=== PATIENT | male | born 1950 | race African-American/Black ===

== ENCOUNTER 2017-06-01 13:29 | Outpatient (CLI) | payer MEDICARE, MEDICAID ==
[~2017-06-01 13:29] MED LIST: Gadobenate Dimeglumine 529 MG/1 ML (20ML VIAL) ONE
--- NOTE | 2017-06-01 14:42 | ULT ---
CAROTID ULTRASOUND WITH PRABHAKAR SCALE AND DOPPLER DUPLEX COLOR FLOW IMAGING SPECTRAL ANALYSIS PERFORMED: Date: 06/01/17 CLINICAL INDICATION: Hyperlipidemia, stroke, aphasia. FINDINGS: There is no significant atherosclerotic calcification of the carotid arteries. PEAK SYSTOLIC VELOCITY (CM/S): Right CCA 81 Left CCA 71 Right ICA 53 Left ICA 34 There is antegrade flow within the visualized bilateral vertebral arteries. IMPRESSION: 1. No hemodynamically significant stenosis of the right internal carotid artery. 2. No hemodynamically significant stenosis of the left internal carotid artery. POS: MEDHAT
--- NOTE | 2017-06-01 16:11 | MRI ---
BRAIN MRI WITH AND WITHOUT CONTRAST: CLINICAL HISTORY: CVA. Difficulty with speech. FINDINGS: There is parenchymal volume loss and gliosis, notably involving the posterior left cerebral hemispher e with superimposed multifoal signal alteration, indicating moderate chronic ischemic disease. There is no acute restriction. Ex vacuo dilatation of the posterior aspect of the left lateral ventricle is present. No intracranial hemorrhagic susceptibility. no pathologic enhancing intraaxial mass. T he imaged skull base flow voids are maintained. IMPRESSION: 1. Prominent encephalomalacia of the left cerebral hemisphere with superimposed moderate chronic dagoberto rovascular ischemic disease. 2. No acute territorial infarction. 3. No enhancing intraaxial mass. POS: HARRY
== END 2017-06-01 13:30 | disposition home or self-care (01) ==
LOC: SCSMRI 13:29
PROVIDERS: ATTEND Psychiatry & Neurology Neurology
DX: I63.9 Cerebral infarction, unspecified (principal); E78.5 Hyperlipidemia, unspecified; R47.01 Aphasia; G93.89 Other specified disorders of brain; I67.82 Cerebral ischemia
CPT/HCPCS: 70553; 82565; 93880; A9579

== ENCOUNTER 2017-08-18 11:54 | Inpatient (IN) | payer MEDICARE, MEDICAID ==
[2017-08-18] MEDS ORDERED: Nitroglycerin 0.4 MG TAB (25 Tab Bottle) ONE (12:25)
[2017-08-18] MEDS ORDERED: Nitroglycerin 2% Ointment 1 INCH/1 GM Packet ONE (12:25)
[2017-08-18 12:57] LABS: ALT (SGPT) 11 U/L (8-55); AST (SGOT) 17 U/L (5-34); Albumin 4.7 g/dL (3.4-4.8); Alkaline Phosphatase 71 U/L (40-150); Anion Gap 23 mmol/L (10-20); BUN (Urea Nitrogen) 12 mg/dL (8.4-25.7); Bilirubin, Total 0.5 mg/dL (0.2-1.2); CK (CPK) 139 U/L (30-200); Calc. Creatinine Clearance 0 mL/min (70-130); Calcium 9.4 mg/dL (7.8-10.44); Carbon Dioxide 20 mmol/L (23-31); Chloride 100 mmol/L (98-107); Estimated GFR-MDRD 78; Globulin 3.6 g/dL (2.4-3.5); Glucose 94 mg/dL (80-115); Potassium 3.5 mmol/L (3.5-5.1); Protein, Total 8.3 g/dL (5.8-8.1); Sodium 139 mmol/L (136-145)
[2017-08-18 13:11] LABS: CKMB 1.9 ng/mL (0-6.6); Troponin I 0.028 ng/mL (< 0.028)
[2017-08-18 13:27] LABS: Hemoglobin 13.9 g/dL (14.0-18.0); Mean Corpuscular HGB CONC 33.3 g/dL (32.0-36.0); Mean Corpuscular Hemoglobin 21.8 pg (27.0-31.0); Mean Corpuscular Volume 65.5 fl (80.0-94.0); Red Blood Cell (RBC) Count 6.36 mill/uL (4.70-6.10); White Blood Cell (WBC) Count 10.9 thou/uL (4.8-10.8)
[2017-08-18 13:36] LABS: Anisocytosis SLIGHT = 6-15 cells (100X) (0-5/hpf); Band 1 % (5-11); Hypochromia SLIGHT = 6-15 cells (100X) (0-5/hpf); Lymphocytes 7 % (21-51); MDiff Complete? YES; Mean Platelet Volume 6.3 fL (7.4-10.4); Microcytosis SLIGHT = 6-15 cells (100X) (0-5/hpf); Monocytes 7 % (0-10); Neutrophil 82 % (42-75); PLT Morphology Comment PLT clumps seen-ADEQ; Platelet Clumps MODERATE; Reactive Lymphocytes 2 % (0-10); Target Cells SLIGHT = 2-5 cells (100X) (0-1/hpf)
--- NOTE | 2017-08-18 15:41 | HP ---
PRIMARY CARE PHYSICIAN: Ancelmo Duarte M.D. REASON FOR ADMISSION: [facility]. HISTORY OF PRESENT ILLNESS: A 66-year-old -[place] male who has underlying history of hypert ension, diabetes type 2 and seizure disorder who had scheduled endoscopic procedure at [facility]. While procedure, patient developed SVT with heart rate in the 160s. Subsequently, patient had vagal manually and heart rate dropped down to 110. The patient was completely asymptoma tic. Patient was scheduled today for colonoscopy and after colonoscopy, patient had SVT episode. He was given lidocaine and vagal manually and subsequently he was converted to normal sinus rhythm. Th e patient was given 200 mL NS and EJ IV access was obtained, and subsequently he was sent to emergenc y room for evaluation. When he arrived to emergency room, he was in sinus rhythm, hypertensive. 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 REVIEW OF SYSTEMS: The following complete review of systems was negative, unless otherwise mentioned in the HPI or below: Constitutional: Weight loss or gain, ability to conduct usual activities. Skin: Rash, itching. Eyes: Double vision, pain. ENT/Mouth: Nose bleeding, neck stiffness, pain, tenderness. Cardiovascular: Palpitations, dyspnea on exertion, orthopnea. Respiratory: Shortness of breath, wheezing, cough, hemoptysis, fever or night sweats. Gastrointestinal: Poor appetite, abdominal pain, heartburn, nausea, vomiting, constipation, or diarr hea. Genitourinary: Urgency, frequency, dysuria, nocturia. Musculoskeletal: Pain, swelling. Neurologic/Psychiatric: Anxiety, depression. Allergy/Immunologic: Skin rash, bleeding tendency. Please see my HPI for pertinent positive and negative. All other review of systems reviewed and nega tive except as mentioned in the HPI. Review of system is also unreliable with the patient because of his cognitive status. PAST MEDICAL HISTORY: History of cerebrovascular accident with right-sided weakness, diabetes type 2 , hypertension, dyslipidemia, epilepsy. PAST SURGICAL HISTORY: The patient is not able to provide any surgical history. PAST PSYCHIATRIC HISTORY: The patient has baseline mental retardation. SOCIAL HISTORY: Patient lives at home. No history of tobacco, alcohol or illicit drug abuse. FAMILY HISTORY: No strong family history of premature coronary artery disease, stroke or cancer. ALLERGIES: No known drug allergy. CURRENT HOME MEDICATIONS: Amlodipine 10 mg daily, aspirin 81 mg p.o. daily, Lipitor 20 mg p.o. at be dtime, Coreg 6.25 mg p.o. b.i.d., clonidine p.r.n. basis, ferrous sulfate 325 mg p.o. daily, hydralaz ine 100 mg 3 times daily, lisinopril 40 mg p.o. daily, metformin 500 mg twice daily, Keppra 500 mg tw ice daily, and Aldactone 25 mg p.o. daily. EMERGENCY ROOM COURSE: Patient is given nitroglycerin 0.4 mg sublingual, nitropatch and aspirin 324 mg. PHYSICAL EXAMINATION: VITAL SIGNS: On arrival, blood pressure 203/113, pulse 99, respiratory rate 19, temperature 98.8, sa turation 96% on room air and weight 99.8 kilograms. GENERAL: The patient is currently alert, awake. Follows simple command. No obvious acute distress. HEAD: Normocephalic, atraumatic. EYES: Pupils round, reactive to light. Extraocular muscle intact. ENT: Oropharynx within normal limits. Nasal deformity noted. Moist mucous membranes. NECK: Supple, no JVD, no thyromegaly, no carotid bruit. LUNGS: Clear to auscultation without any rhonchi or rales. CARDIAC: S1 and S2 regular. No murmur, no gallop, no rub. ABDOMEN: Soft, bowel sounds present, nontender, nondistended. No organomegaly, no mass, no suprapub ic tenderness. BACK: Examination unremarkable, no CVA tenderness. EXTREMITIES: Upper extremity passive movement of all joints are normal. Lower extremities: No ernesto a. Good peripheral pulsation, no calf tenderness. SKIN: No skin rash. HEMATOLOGICAL SYSTEM: No lymphadenopathy. PSYCHIATRIC: Flat affect. NEUROLOGIC: The patient does not have any gross new focal neurological deficits, but detailed neurol ogical examination is not possible with the patient. IMAGING DATA AND SIGNIFICANT LABORATORY DATA: 1. EKG showing sinus tachycardia, nonspecific ST-T changes. 2. CBC: WBC 10.9, hemoglobin 13.9, MCV 65.5, platelets test not performed because of platelet count clump little. 3. BMP: Sodium 139, potassium 3.5, chloride 100, carbon dioxide 20, anion gap 23, BUN 12, creatinin e 1.14, glucose 94, calcium 9.4. 4. LFT: AST 17, ALT 11, alkaline phosphatase 71, albumin 4.7. CK 139, CK-MB 1.9, troponin I 0.028, BNP 37.5. ASSESSMENT AND PLAN/IMPRESSION: 1. Supraventricular tachycardia, converted to sinus rhythm after lidocaine and vagal maneuver. At t his point, this patient [facility]. We do not have strips a vailable. Currently, patient has sinus rhythm. Episode was transient. We will keep this patient in the hospital for observation for telemetry monitoring. We will check T3, T4, TSH tomorrow. We will do serial cardiac enzymes to rule out acute coronary syndrome. We will check lipid profile for risk stratification. We will continue with nitro patch q.8 hourly for his hypertension. We will consult integration architect tomorrow for possible evaluation with ablation if needed. We will obtain echoca rdiography to assess ejection fraction and other structural abnormality. 2. Diabetes type 2. We will continue metformin 500 mg twice daily. Diabetic diet will be given. A ccu-Chek a.c. and at bedtime and insulin as per sliding scale per protocol. 3. Hypertension with hypertensive urgency. We will continue with nitropatch q.8 hourly. We will re sume his home medication including hydralazine 100 mg t.i.d., lisinopril 40 mg p.o. daily, amlodipine 10 mg p.o. daily and p.r.n. basis IV medications. 4. Dyslipidemia. Check lipid profile tomorrow and continue Lipitor at 20 mg p.o. at bedtime. 5. Microcytic anemia. The patient had colonoscopy today. We will continue ferrous sulfate 325 mg p .o. daily. 6. Seizure disorder. Continue Keppra 500 mg twice daily. 7. Deep venous thrombosis prophylaxis not needed because we are expecting discharge in 24 hours. 8. Gastrointestinal prophylaxis, Pepcid 20 mg p.o. b.i.d. 9. Code status: The patient is FULL CODE. Patient does not have any surrogate decision maker. Disposition plan based on clinical course. We are expecting patient's stay in hospital [address] an of care discussed with the patient in detail.
[2017-08-18] MEDS ORDERED: Ondansetron ODT 4 MG TAB PO PRN (16:33)
[2017-08-18] MEDS ORDERED: Artificial Tears 18 DROP/0.9 ML EA EYE PRN (16:33)
[2017-08-18] MEDS ORDERED: Zolpidem Tartrate 5 MG TAB PO PRN (16:33)
[2017-08-18] MEDS ORDERED: HYDROcodone/Acetaminophen 5/325 mg Tablet PO PRN (16:33)
[2017-08-18] MEDS ORDERED: Diabetic Tussin 200 MG/10 ML UDCUP PO PRN (16:33)
[2017-08-18] MEDS ORDERED: Eucerin (Mineral Oil/Petrolatum,White) 30 gm Jar TOP PRN (16:33)
[2017-08-18] MEDS ORDERED: Senokot 8.6 MG TAB PO PRN (16:33)
[2017-08-18] MEDS ORDERED: Nitroglycerin 0.4 MG TAB (25 Tab Bottle) SL PRN (16:33)
[2017-08-18] MEDS ORDERED: Sodium Chloride 0.65% Nasal 44 ML BOT EA NARE PRN (16:33)
[2017-08-18] MEDS ORDERED: Chloraseptic Spray 180 ml Bottle PO PRN (16:33)
[2017-08-18] MEDS ORDERED: Dextrose 50% Abboject 50 ML SYRINGE SLOW IVP PRN (16:33)
[2017-08-18] MEDS ORDERED: Mag-Al 1200 mg/1200 mg/30 ML UDCUP PO PRN (16:33)
[2017-08-18] MEDS ORDERED: Dextrose 5% in Water 1,000 ML IV PRN (16:33)
[2017-08-18] MEDS ORDERED: Loratadine 10 MG TAB PO PRN (16:33)
[2017-08-18] MEDS ORDERED: Milk Of Magnesia 30 ML UDCUP PO PRN (16:33)
[2017-08-18] MEDS ORDERED: hydrALAZINE 20 MG/ML VIAL SLOW IVP PRN (16:33)
[2017-08-18] MEDS ORDERED: Ondansetron HCl/PF 4 MG/2 ML Vial IVP PRN (16:33)
[2017-08-18] MEDS ORDERED: Loperamide HCl 2 MG CAP PO PRN (16:33)
[2017-08-18] MEDS ORDERED: HumaLOG 300 UNITS/3 ML VIAL SC PRN ×2 (16:33)
[2017-08-18] MEDS ORDERED: Acetaminophen 650 MG Suppository PR PRN (16:33)
[2017-08-18 16:41] LABS: Troponin I 0.048 ng/mL (< 0.028)
[2017-08-18 17:28] LABS: Bilirubin Negative (Negative); Blood, Urine Small (Negative); Clarity CLEAR (Clear); Glucose, Urine (Dipstick) Negative (Negative); Leukocyte Negative (Negative); Nitrite Negative (Negative); Protein, Urine (Dipstick) 300 mg/dL (Neg-Trace); Urobilinogen 0.2 mg/dL (0.2-1.0); pH, Urine 6.5 (5.0-9.0)
[2017-08-18] MEDS ORDERED: hydrALAZINE 25 MG TAB PO SCH (17:30)
[2017-08-18 17:35] LABS: Bacteria/HPF None Seen HPF (None Seen); Hyaline Casts/LPF 0-3 HYALINE CAST LPF (0-3 Hyaline); Squamous Epithelial None Seen HPF (0-3); WBC/HPF 0-3 HPF (0-3)
[2017-08-18] MEDS: Carvedilol 6.25 MG TAB PO SCH (18:49)
[2017-08-18] MEDS: metFORMIN 500 MG TAB PO SCH (18:50)
[2017-08-18] MEDS: hydrALAZINE 25 MG TAB PO SCH (18:57)
[2017-08-18 20:17] LABS: Troponin I 0.073 ng/mL (< 0.028)
[2017-08-18] MEDS ORDERED: levETIRAcetam 500 MG TAB PO SCH (21:00)
[2017-08-18] MEDS ORDERED: Atorvastatin Calcium 20 MG TAB PO SCH (21:00)
[2017-08-18] MEDS: Famotidine 20 MG TAB PO SCH (21:05)
[2017-08-18] MEDS: Nitroglycerin 2% Ointment 1 INCH/1 GM Packet TOP SCH (21:06)
[2017-08-19 04:54] LABS: Hemoglobin 11.4 g/dL (14.0-18.0); Lymphocytes 24 % (21-51); MDiff Complete? YES; Mean Corpuscular HGB CONC 34.2 g/dL (32.0-36.0); Mean Corpuscular Hemoglobin 22.1 pg (27.0-31.0); Mean Corpuscular Volume 64.6 fL (78.0-98.0); Mean Platelet Volume 5.6 fL (7.4-10.4); Monocytes 13 % (0-10); Neutrophil 63 % (42-75); PLT Morphology Comment Appears Adequate; Platelet Count 227 thou/uL (130-400); RBC Distribution Width 17.9 % (11.5-14.5); Red Blood Cell (RBC) Count 5.15 mill/uL (4.70-6.10); White Blood Cell (WBC) Count 8.7 thou/uL (4.8-10.8)
[2017-08-19 05:07] LABS: Anion Gap 18 mmol/L (10-20); BUN (Urea Nitrogen) 13 mg/dL (8.4-25.7); Calc. Creatinine Clearance 71 mL/min (70-130); Calcium 8.8 mg/dL (7.8-10.44); Carbon Dioxide 25 mmol/L (23-31); Cardiac Risk 2.4 (Less than 4.5); Chloride 101 mmol/L (98-107); Cholesterol 137 mg/dl (< 200 Desired); Estimated GFR-MDRD 64; Glucose 92 mg/dL (80-115); HDL Cholesterol 58 mg/dL (>60 Neg Risk); LDL Cholesterol, Calculated 69 mg/dL; Sodium 141 mmol/L (136-145); Triglycerides 49 mg/dL (Less than 150)
[2017-08-19 05:08] LABS: Potassium 2.9 mmol/L (3.5-5.1)
[2017-08-19 05:18] LABS: Thyroid Stimulating Hormone 0.465 uIU/mL (0.35-4.94)
[2017-08-19] MEDS ORDERED: Potassium Chloride 20 MEQ TAB PO SCH (05:30)
[2017-08-19] MEDS: Nitroglycerin 2% Ointment 1 INCH/1 GM Packet TOP SCH ×3 (05:37→22:51)
[2017-08-19 05:57] LABS: Free T4 (Free Thyroxine) 1.32 ng/dL (0.70-1.48)
[2017-08-19] MEDS ORDERED: Potassium Chloride 40 MEQ in Premix Bag 1 BAG IVPB SCH (07:15)
[2017-08-19] MEDS: Carvedilol 6.25 MG TAB PO SCH ×2 (07:42→17:13)
[2017-08-19] MEDS: Aspirin 325 MG TAB PO SCH (07:43)
[2017-08-19] MEDS: cloNIDine 0.2 MG TAB PO SCH ×3 (07:43→20:31)
[2017-08-19] MEDS: Spironolactone 25 MG TAB PO SCH (07:43)
[2017-08-19] MEDS: levETIRAcetam 500 MG TAB PO SCH ×2 (07:44→20:31)
[2017-08-19] MEDS: hydrALAZINE 25 MG TAB PO SCH ×3 (07:44→20:30)
[2017-08-19] MEDS: Lisinopril 20 MG TAB PO SCH (07:44)
[2017-08-19] MEDS: Famotidine 20 MG TAB PO SCH ×2 (07:47→20:32)
[2017-08-19] MEDS: Ferrous Sulfate 325 MG TAB PO SCH (07:50)
[2017-08-19] MEDS: metFORMIN 500 MG TAB PO SCH ×2 (07:50→17:12)
[2017-08-19] MEDS ORDERED: Amlodipine 10 MG TAB PO SCH (09:00)
--- NOTE | 2017-08-19 09:49 | PDOC.PN ---
- Subjective Encounter Start Date: 08/19/17 Encounter Start Time: 07:20 -: old records requested/rev Patient seen and examined for SVT. No new complaints. No overnight events - Objective Resuscitation Status: Resuscitation Status FULL:Full Resuscitation MAR Reviewed: Yes Vital Signs & Weight: Vital Signs (12 hours) Temp Pulse Resp BP Pulse Ox 08/19/17 07:44 100 08/19/17 07:39 98.7 F 100 14 154/97 H 96 08/19/17 04:00 98.9 F 100 20 164/87 H 97 08/19/17 00:00 99.5 F 94 20 136/75 97 Weight Weight 205 lb 9.6 oz I&O: 08/18/17 08/19/17 08/20/17 06:59 06:59 06:59 Intake Total 480 Output Total 500 Balance -20 Result Diagrams: 08/19/17 04:11 08/19/17 04:10 Additional Labs: Accuchecks 08/19/17 08/18/17 08/18/17 06:10 20:39 17:09 POC Glucose 92 196 H 122 H EKG Reviewed by me: Yes (nsr) Phys Exam - Physical Examination Constitutional: NAD HEENT: PERRLA, moist MMs, sclera anicteric Neck: no JVD, supple Respiratory: no wheezing, no rales, no rhonchi Cardiovascular: RRR, no significant murmur, no rub Gastrointestinal: soft, non-tender, no distention, positive bowel sounds Musculoskeletal: no edema, pulses present Neurological: non-focal, normal sensation, moves all 4 limbs Lymphatic: no nodes Psychiatric: normal affect, A&O x 3 Skin: no rash, normal turgor Dx/Plan (1) Demand ischemia Code(s): I24.8 - OTHER FORMS OF ACUTE ISCHEMIC HEART DISEASE Status: Acute (2) Hypokalemia Code(s): E87.6 - HYPOKALEMIA Status: Acute (3) SVT (supraventricular tachycardia) Code(s): I47.1 - SUPRAVENTRICULAR TACHYCARDIA Status: Acute (4) Diabetes type 2, controlled Code(s): E11.9 - TYPE 2 DIABETES MELLITUS WITHOUT COMPLICATIONS Status: Chronic (5) Dyslipidemia Code(s): E78.5 - HYPERLIPIDEMIA, UNSPECIFIED Status: Chronic (6) Hypertension Code(s): I10 - ESSENTIAL (PRIMARY) HYPERTENSION Status: Chronic (7) Microcytic anemia Code(s): D50.9 - IRON DEFICIENCY ANEMIA, UNSPECIFIED Status: Chronic (8) Obesity (BMI 30.0-34.9) Code(s): E66.9 - OBESITY, UNSPECIFIED Status: Chronic - Plan cont current plan of care * replace potassium * magnesium is normal * spoke with EP, plan for EP study tomorrow * will change to inpt status * Echo pending * medication reviewed as below * symptomatic treatment. Review of Systems - Review of Systems Eyes: negative: Pain, Vision Change, Conjunctivae Inflammation, Eyelid Inflammation, Redness, Other ENT: negative: Ear Pain, Ear Discharge, Nose Pain, Nose Discharge, Nose Congestion, Mouth Pain, Mouth Swelling, Throat Pain, Throat Swelling, Other Respiratory: negative: Cough, Dry, Shortness of Breath, Hemoptysis, SOB with Excertion, Pleuritic Pain, Sputum, Wheezing Cardiovascular: negative: chest pain, palpitations, orthopnea, paroxysmal nocturnal dyspnea, edema, light headedness, other Gastrointestinal: negative: Nausea, Vomiting, Abdominal Pain, Diarrhea, Constipation, Melena, Hematochezia, Other Genitourinary: negative: Dysuria, Frequency, Incontinence, Hematuria, Retention , Other Musculoskeletal: negative: Neck Pain, Shoulder Pain, Arm Pain, Back Pain, Hand Pain, Leg Pain, Foot Pain, Other Skin: negative: Rash, Lesions, Rogelio, Bruising, Other - Medications/Allergies Allergies/Adverse Reactions: Allergies Allergy/AdvReac Type Severity Reaction Status Date / Time No Known Drug Allergies Allergy Verified 08/18/17 17:17 Medications: Current Medications Acetaminophen (Tylenol) 650 mg GA Q4H PRN PRN Reason: Headache/Fever or Pain Hydrocodone Bitart/Acetaminophen ([place] 5/325) 1 tab PO Q4H PRN PRN Reason: Moderate Pain (4-6) Al Hydroxide/Mg Hydroxide (Maalox) 30 ml PO Q6H PRN PRN Reason: Heartburn or Indigestion Amlodipine Besylate (Norvasc) 10 mg PO HS [facility] Artificial Tears (Tears Naturale) 0 drop EA EYE PRN PRN PRN Reason: Dry Eyes Aspirin (Aspirin) 325 mg PO DAILY [facility] Last Admin: 08/19/17 07:43 Dose: 325 mg Atorvastatin Calcium (Lipitor) 20 mg PO HS [facility] Carvedilol (Coreg) 6.25 mg PO BID[facility] Last Admin: 08/19/17 07:42 Dose: 6.25 mg Clonidine (Catapres) 0.2 mg PO TID [facility] Last Admin: 08/19/17 07:43 Dose: 0.2 mg Dextrose/Water (Dextrose 50%) 25 gm SLOW IVP PRN PRN PRN Reason: Hypoglycemia Famotidine (Pepcid) 20 mg PO BID [facility] Last Admin: 08/19/17 07:47 Dose: 20 mg Ferrous Sulfate (Feosol) 325 mg PO QAM[facility] Last Admin: 08/19/17 07:50 Dose: Not Given Glucagon (Glucagon) 1 mg IM PRN PRN PRN Reason: Hypoglycemia Guaifenesin (Robitussin Sf) 200 mg PO Q4H PRN PRN Reason: Cough Hydralazine HCl (Apresoline) 10 mg SLOW IVP Q4H PRN PRN Reason: Systolic BP > 180 Hydralazine HCl (Apresoline) 100 mg PO TID [facility] Last Admin: 08/19/17 07:44 Dose: 100 mg Dextrose/Water (D5w) 1,000 mls @ 0 mls/hr IV .Q0M PRN; As Directed PRN Reason: Hypoglycemia Insulin Human Lispro (Humalog) 0 units SC .MODERATE SLIDING SC PRN PRN Reason: Moderate Correctional Scale Insulin Human Lispro (Humalog) 0 units SC .BEDTIME SLIDING SC PRN PRN Reason: Bedtime Correctional Scale Levetiracetam (Keppra) 500 mg PO [facility] Levetiracetam (Keppra) 1,000 [facility] [place] Last Admin: 08/19/17 07:44 Dose: 1,000 mg Lisinopril (Zestril) 40 mg PO DAILY [facility] Last Admin: 08/19/17 07:44 Dose: 40 mg Loperamide HCl (Imodium) 2 mg PO PRN PRN PRN Reason: Diarrhea/Loose Stools Loratadine (Claritin) 10 mg PO DAILYPRN PRN PRN Reason: Sinus Symptoms Magnesium Hydroxide (Milk Of Magnesium) 30 ml PO DAILYPRN PRN PRN Reason: Constipation Metformin HCl (Glucophage) 500 mg PO BID[facility] Last Admin: 08/19/17 07:50 Dose: Not Given Mineral Oil/White Petrolatum (Eucerin Cream) 0 gm TOP BIDPRN PRN PRN Reason: Dry Skin Nitroglycerin (Nitrostat) 0.4 mg SL Q5MIN PRN PRN Reason: Chest Pain Nitroglycerin (Nitro-Bid 2% Ointment) 0.5 inch TOP Q8HR [facility] Last Admin: 08/19/17 05:37 Dose: 0.5 inch Ondansetron HCl (Zofran Odt) 4 mg PO Q6H PRN PRN Reason: Nausea/Vomiting Ondansetron HCl (Zofran) 4 mg IVP Q6H PRN PRN Reason: Nausea/Vomiting Phenol (Chloraseptic [place] 180 Ml Bot) 0 ml PO PRN PRN PRN Reason: Sore Throat Senna (Senokot) 2 tab PO HSPRN PRN PRN Reason: Constipation Sodium Chloride ([place] Nasal [place] 0.65%) 0 ml EA NARE QIDPRN PRN PRN Reason: Nasal Congestion Spironolactone (Aldactone) 25 mg PO QAM-WM [facility] Last Admin: 08/19/17 07:43 Dose: 25 mg Zolpidem Tartrate (Ambien) 5 mg PO HSPRN PRN PRN Reason: Insomnia
--- NOTE | 2017-08-19 11:38 | CON ---
DATE OF CONSULTATION: 08/19/2017 ELECTROPHYSIOLOGY CONSULTATION I am seeing Mr. 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 REFERRING PHYSICIAN: Dr. Sandoval HISTORY OF PRESENT ILLNESS: I am seeing Mr. Johnson for the following problems: 1. Paroxysmal supraventricular tachycardia. A. Episode of SVT at [facility] at rate of 160 beats per minute, requiring vagal maneuver to terminate the arrhythmia, also given lidocaine. 2. Abnormal EKG with a potential preexcitation in the initial portion with negative Delta wave in AV R. 3. Mild to moderate mental retardation. 4. 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 ALLERGIES: None noted. MEDICATIONS AT HOME: Amlodipine, aspirin, Lipitor, Coreg, clonidine, ferrous sulfate, hydralazine, l isinopril, metformin, Keppra, Aldactone. SUBJECTIVE: Mr. Johnson is a poor historian. He was undergoing an endoscopic procedure at [facility] and developed SVT requiring vagal maneuvers to terminate it. His heart rate was in the 160s. He was subsequently transferred to our facility for further evaluation. Ever since he arrived his rhythm remained stable. On further questioning, he says he has episodes of a frightening dizzy spells, at times also passes o ut. He could not give us a good time line and the frequency. He has a remote history of seizure dis order, unclear duration and extent. PAST MEDICAL HISTORY: As above. PAST SURGICAL HISTORY: Not available. SOCIAL HISTORY: Patient lives at home. 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 Denies smoking, ETOH or drug abuse. FAMILY HISTORY: Not contributory. OBJECTIVE: VITAL SIGNS: The blood pressure is 154/97, heart rate 100, respirations 14, temperature 98.7 degrees Fahrenheit. GENERAL: He is alert and oriented man in no apparent distress. NECK: Supple. Jugular veins not distended. CHEST: Coarse without crackles. CARDIOVASCULAR: Heart sounds are regular to rate and rhythm. No murmur or gallop. ABDOMEN: Benign. Bowel sounds positive. EXTREMITIES: Lower extremities without edema, clubbing or cyanosis. SKIN: Without rash. NEUROLOGIC: The patient is nonfocal. DATABASE: EKGs reviewed reveals sinus rhythm with some short CA and blurring of the initial portion of the QRS, could be considered ____. LABORATORY DATA: White count is 8.7, hemoglobin 9.4, platelet count is 227. Sodium 141, potassium 2 .9, BUN is 13, creatinine 1.36. Troponin 0.073, previously 0.048, original was 0.028. ASSESSMENT AND PLAN: 1. Mr. Johnson is a pleasant 66-year-old man with a history of mental retardation, hypertension and s eizure disorder. Now he is presenting after a colonoscopy procedure during which he developed SVT, w hich responded to vagal maneuvers. His EKG could be considered with preexcitation. Hence he has a h istory of seizure disorders, possible prior misdiagnosed syncopal spells could have been present. Based on these, I think it is reasonable to have him undergo an invasive EP study and possible ablati on procedure. I explained the procedure to him, but will also contact his earth science technician and medical carlin r of corporate attorney. Risks, benefits were explained. We will set him up for a near date. 2. Hypokalemia, to be corrected. 3. We will obtain echocardiogram, possible further ischemic evaluation hence borderline troponin estrellita sarahes.
[2017-08-19] MEDS: Atorvastatin Calcium 20 MG TAB PO SCH (20:31)
[2017-08-19] MEDS: Amlodipine 10 MG TAB PO SCH (20:31)
[2017-08-20] MEDS: Nitroglycerin 2% Ointment 1 INCH/1 GM Packet TOP SCH ×3 (06:08→21:25)
--- NOTE | 2017-08-20 11:19 | PDOC.PN ---
- Subjective Encounter Start Date: 08/20/17 Encounter Start Time: 08:00 Patient seen and examined for SVT. No new complaints. No overnight events - Objective MAR Reviewed: Yes Vital Signs & Weight: Vital Signs (12 hours) Temp Pulse Resp BP Pulse Ox 08/20/17 07:56 97.9 F 67 17 125/68 94 L 08/20/17 04:00 98.3 F 75 14 120/69 95 Weight Weight 210 lb 14.4 oz I&O: 08/19/17 08/20/17 08/21/17 06:59 06:59 06:59 Intake Total 400 Balance 400 Result Diagrams: 08/19/17 04:11 08/19/17 04:10 Additional Labs: Accuchecks 08/20/17 08/20/17 08/19/17 10:42 05:55 21:01 POC Glucose 89 90 133 H 08/19/17 08/19/17 16:46 10:46 POC Glucose 128 H 95 EKG Reviewed by me: Yes (nsr) Phys Exam - Physical Examination Constitutional: NAD HEENT: PERRLA, moist MMs, sclera anicteric Neck: no JVD, supple Respiratory: no wheezing, no rales, no rhonchi Cardiovascular: RRR, no significant murmur, no rub Gastrointestinal: soft, non-tender, no distention, positive bowel sounds Musculoskeletal: no edema, pulses present Neurological: non-focal, normal sensation, moves all 4 limbs Psychiatric: normal affect Skin: no rash, normal turgor Dx/Plan (1) Demand ischemia Code(s): I24.8 - OTHER FORMS OF ACUTE ISCHEMIC HEART DISEASE Status: Acute (2) Hypokalemia Code(s): E87.6 - HYPOKALEMIA Status: Acute (3) SVT (supraventricular tachycardia) Code(s): I47.1 - SUPRAVENTRICULAR TACHYCARDIA Status: Acute (4) Diabetes type 2, controlled Code(s): E11.9 - TYPE 2 DIABETES MELLITUS WITHOUT COMPLICATIONS Status: Chronic (5) Dyslipidemia Code(s): E78.5 - HYPERLIPIDEMIA, UNSPECIFIED Status: Chronic (6) Hypertension Code(s): I10 - ESSENTIAL (PRIMARY) HYPERTENSION Status: Chronic (7) Microcytic anemia Code(s): D50.9 - IRON DEFICIENCY ANEMIA, UNSPECIFIED Status: Chronic (8) Obesity (BMI 30.0-34.9) Code(s): E66.9 - OBESITY, UNSPECIFIED Status: Chronic - Plan cont current plan of care * repeat BMP tomorrow * today plan for ablation * will consider discharge tomorrow if stable * medication reviewed as below * symptomatic treatment. Review of Systems - Review of Systems ENT: negative: Ear Pain, Ear Discharge, Nose Pain, Nose Discharge, Nose Congestion, Mouth Pain, Mouth Swelling, Throat Pain, Throat Swelling, Other Respiratory: negative: Cough, Dry, Shortness of Breath, Hemoptysis, SOB with Excertion, Pleuritic Pain, Sputum, Wheezing Cardiovascular: negative: chest pain, palpitations, orthopnea, paroxysmal nocturnal dyspnea, edema, light headedness, other Gastrointestinal: negative: Nausea, Vomiting, Abdominal Pain, Diarrhea, Constipation, Melena, Hematochezia, Other Genitourinary: negative: Dysuria, Frequency, Incontinence, Hematuria, Retention , Other Musculoskeletal: negative: Neck Pain, Shoulder Pain, Arm Pain, Back Pain, Hand Pain, Leg Pain, Foot Pain, Other Skin: negative: Rash, Lesions, Rogelio, Bruising, Other - Medications/Allergies Allergies/Adverse Reactions: Allergies Allergy/AdvReac Type Severity Reaction Status Date / Time No Known Drug Allergies Allergy Verified 08/18/17 17:17 Medications: Current Medications Acetaminophen (Tylenol) 650 mg SD Q4H PRN PRN Reason: Headache/Fever or Pain Hydrocodone Bitart/Acetaminophen (Lehr 5/325) 1 tab PO Q4H PRN PRN Reason: Moderate Pain (4-6) Al Hydroxide/Mg Hydroxide (Maalox) 30 ml PO Q6H PRN PRN Reason: Heartburn or Indigestion Amlodipine Besylate (Norvasc) 10 mg PO [facility] Last Admin: 08/19/17 20:31 Dose: 10 mg Artificial Tears (Tears Naturale) 0 drop EA EYE PRN PRN PRN Reason: Dry Eyes Aspirin (Aspirin) 325 mg PO DAILY [facility] Last Admin: 08/19/17 07:43 Dose: 325 mg Atorvastatin Calcium (Lipitor) 20 mg PO [facility] Last Admin: 08/19/17 20:31 Dose: 20 mg Carvedilol (Coreg) 6.25 mg PO BID-[facility] Last Admin: 08/19/17 17:13 Dose: 6.25 mg Clonidine (Catapres) 0.2 mg PO TID [facility] Last Admin: 08/19/17 20:31 Dose: 0.2 mg Dextrose/Water (Dextrose 50%) 25 gm SLOW IVP PRN PRN PRN Reason: Hypoglycemia Famotidine (Pepcid) 20 mg PO BID [facility] Last Admin: 08/19/17 20:32 Dose: 20 mg Ferrous Sulfate (Feosol) 325 mg PO QAM-[facility] Last Admin: 08/19/17 07:50 Dose: Not Given Glucagon (Glucagon) 1 mg IM PRN PRN PRN Reason: Hypoglycemia Guaifenesin (Robitussin Sf) 200 mg PO Q4H PRN PRN Reason: Cough Hydralazine HCl (Apresoline) 10 mg SLOW IVP Q4H PRN PRN Reason: Systolic BP > 180 Hydralazine HCl (Apresoline) 100 mg PO TID [facility] Last Admin: 08/19/17 20:30 Dose: 100 mg Dextrose/Water (D5w) 1,000 mls @ 0 mls/hr IV .Q0M PRN; As Directed PRN Reason: Hypoglycemia Insulin Human Lispro (Humalog) 0 units SC .MODERATE SLIDING SC PRN PRN Reason: Moderate Correctional Scale Insulin Human Lispro (Humalog) 0 units SC .BEDTIME SLIDING SC PRN PRN Reason: Bedtime Correctional Scale Levetiracetam (Keppra) 500 mg PO [facility] Last Admin: 08/19/17 20:31 Dose: 500 mg Levetiracetam (Keppra) 1,000 mg PO [facility] Last Admin: 08/19/17 07:44 Dose: 1,000 mg Lisinopril (Zestril) 40 mg PO DAILY [facility] Last Admin: 08/19/17 07:44 Dose: 40 mg Loperamide HCl (Imodium) 2 mg PO PRN PRN PRN Reason: Diarrhea/Loose Stools Loratadine (Claritin) 10 mg PO DAILYPRN PRN PRN Reason: Sinus Symptoms Magnesium Hydroxide (Milk Of Magnesium) 30 ml PO DAILYPRN PRN PRN Reason: Constipation Metformin [facility] (Glucophage) [facility] Last Admin: 08/19/17 17:12 Dose: 500 mg Mineral Oil/White Petrolatum (Eucerin Cream) 0 gm TOP BIDPRN PRN PRN Reason: Dry Skin Nitroglycerin (Nitrostat) 0.4 mg SL Q5MIN PRN PRN Reason: Chest Pain Nitroglycerin (Nitro-Bid 2% Ointment) 0.5 inch TOP Q8HR [facility] Last Admin: 08/20/17 06:08 Dose: 0.5 inch Ondansetron HCl (Zofran Odt) 4 mg PO Q6H PRN PRN Reason: Nausea/Vomiting Ondansetron HCl (Zofran) 4 mg IVP Q6H PRN PRN Reason: Nausea/Vomiting Phenol (Chloraseptic [place] 180 Ml Bot) 0 ml PO PRN PRN PRN Reason: Sore Throat Senna (Senokot) 2 tab PO HSPRN PRN PRN Reason: Constipation Sodium Chloride ([place] Nasal [place] 0.65%) 0 ml EA NARE QIDPRN PRN PRN Reason: Nasal Congestion Spironolactone (Aldactone) 25 mg PO QAM-WM [facility] Last Admin: 08/19/17 07:43 Dose: 25 mg Zolpidem Tartrate (Ambien) 5 mg PO HSPRN PRN PRN Reason: Insomnia
[2017-08-20] MEDS ORDERED: Heparin 10,000 UNITS/1 ML VIAL ONE (13:46)
[2017-08-20] MEDS ORDERED: Lidocaine 1% (PF) 30 ML VIAL ONE (14:05)
[2017-08-20] MEDS ORDERED: Isoproterenol 0.2 MG/1 ML AMP ONE (15:20)
[2017-08-20] MEDS: metFORMIN 500 MG TAB PO SCH ×2 (15:33→19:45)
[2017-08-20] MEDS ORDERED: Midazolam HCl 2 mg/2 ml Vial ONE (15:33)
[2017-08-20] MEDS: Ferrous Sulfate 325 MG TAB PO SCH (15:33)
[2017-08-20] MEDS: Carvedilol 6.25 MG TAB PO SCH ×2 (15:33→17:38)
[2017-08-20] MEDS: Famotidine 20 MG TAB PO SCH ×2 (15:34→21:24)
[2017-08-20] MEDS ORDERED: Fentanyl 100 MCG/2 ML VIAL ONE (15:34)
[2017-08-20] MEDS: cloNIDine 0.2 MG TAB PO SCH ×3 (15:34→21:00)
[2017-08-20] MEDS: hydrALAZINE 25 MG TAB PO SCH ×3 (15:34→21:00)
[2017-08-20] MEDS ORDERED: Promethazine HCl 25 MG/ML VIAL SLOW IVP PRN (16:11)
[2017-08-20] MEDS ORDERED: Ondansetron HCl/PF 4 MG/2 ML Vial IVP PRN (16:11)
[2017-08-20] MEDS ORDERED: Promethazine HCl 25 MG/ML VIAL IM PRN (16:11)
[2017-08-20] MEDS: Aspirin 325 MG TAB PO SCH (17:37)
[2017-08-20] MEDS: Lisinopril 20 MG TAB PO SCH (17:38)
[2017-08-20] MEDS: levETIRAcetam 500 MG TAB PO SCH ×2 (17:39→21:23)
[2017-08-20] MEDS: Spironolactone 25 MG TAB PO SCH (17:39)
[2017-08-20] MEDS: Atorvastatin Calcium 20 MG TAB PO SCH (21:24)
[2017-08-21] MEDS: Amlodipine 10 MG TAB PO SCH (02:44)
[2017-08-21 05:02] LABS: Anion Gap 14 mmol/L (10-20); BUN (Urea Nitrogen) 20 mg/dL (8.4-25.7); Calc. Creatinine Clearance 54 mL/min (70-130); Calcium 8.4 mg/dL (7.8-10.44); Carbon Dioxide 25 mmol/L (23-31); Chloride 101 mmol/L (98-107); Estimated GFR-MDRD 45; Glucose 92 mg/dL (80-115); Potassium 3.3 mmol/L (3.5-5.1); Sodium 137 mmol/L (136-145)
[2017-08-21] MEDS: Nitroglycerin 2% Ointment 1 INCH/1 GM Packet TOP SCH (05:56)
[2017-08-21 05:58] VITALS: BMI 30.7
[2017-08-21] MEDS ORDERED: Potassium Chloride 20 MEQ TAB PO SCH (07:15)
[2017-08-21] MEDS: levETIRAcetam 500 MG TAB PO SCH (08:15)
[2017-08-21] MEDS: Carvedilol 6.25 MG TAB PO SCH (08:15)
[2017-08-21] MEDS: Lisinopril 20 MG TAB PO SCH (08:16)
[2017-08-21] MEDS: Spironolactone 25 MG TAB PO SCH (08:16)
[2017-08-21] MEDS: Ferrous Sulfate 325 MG TAB PO SCH (08:17)
[2017-08-21] MEDS: hydrALAZINE 25 MG TAB PO SCH (08:17)
[2017-08-21] MEDS: metFORMIN 500 MG TAB PO SCH (08:17)
[2017-08-21] MEDS: cloNIDine 0.2 MG TAB PO SCH (08:17)
[2017-08-21] MEDS: Aspirin 325 MG TAB PO SCH (08:17)
[2017-08-21] MEDS: Famotidine 20 MG TAB PO SCH (08:17)
--- NOTE | 2017-08-21 09:07 | OP ---
DATE OF PROCEDURE: 08/20/2017 COMPREHENSIVE ELECTROPHYSIOLOGY STUDY REFERRING PHYSICIAN: Neymar Sandoval MD REASON FOR PROCEDURE: Mr. Johnson is a 66-year-old man with history of mental retardation, also prior history of syncopal spells, who underwent a recent colonoscopy procedure in which he developed excessive tachycardia terminated with vagal maneuvers. Baseline EKG with minimal slurring in the initial a portion of QRS, which could represent borderline preexcitation, here for EP study for assessment for SVT induction. PROCEDURE: The patient received deep sedation by Anesthesia specialist. After adequate level of sedation achieved, the left femoral venous area was prepped, draped, anesthetized using subcutaneous lidocaine. A 6 and 8-Bulgarian short sheath was introduced through which an octapolar and a decapolar deflectable catheter was advanced to the right ventricular, His bundle, right atrial position, as well as the coronary sinus area. Pacing, mapping, and recording were performed in each location. Following finding was noted. Baseline measurements: NJ 165, QRS 86, QT 375, HV 45 milliseconds. No definite preexcitation at baseline. Sinus node recovery time is 1270. The corrected sinus node recovery time of 457 noted. AV Wenckebach cycle length was 340. Retrograde VA Wenckebach cycle length was 340 milliseconds as well. The concerning VA conduction was noted. Dual AV node physiology was demonstrated, but no echoes were seen during Isuprel and extrastimuli testing. Burst atrial pacing did not induce any SVTs or atrial flutter/fibrillation. Ventricular access stimuli testing was performed with 400 millisecond drive trains with up to 3 ventricular extrastimuli, which were decremented to the refractory period. Following that, again Isuprel administration was performed and the testing was repeated. No inducible supraventricular or ventricular arrhythmias noted. At the end of the case, the cardiac silhouette was unchanged. CONCLUSION: 1. No inducible supraventricular or ventricular arrhythmias are noted. 2. Borderline, difficult to demonstrate dual AV jocy physiology was seen, but no definite ECHos or inducible tachycardia to suggest AVNRT present. 3. Borderline sinus jocy function. PLAN: Continue monitoring. [facility]
--- NOTE | 2017-08-21 10:46 | DIS ---
DATE OF ADMISSION: 08/19/2017 DATE OF DISCHARGE: 08/21/2017 PRIMARY CARE PHYSICIAN: Ancelmo Duarte M.D. DISCHARGE DISPOSITION: Home. PRIMARY DISCHARGE DIAGNOSES: 1. Supraventricular tachycardia. 2. Demand ischemia. 3. Hypokalemia. 4. Left ventricular hypertrophy and pulmonary regurgitation. SECONDARY DISCHARGE DIAGNOSES: History of cerebrovascular accident, seizure disorder, obesity with B TN 30, microcytic anemia, hypertension, dyslipidemia, diabetes type 2. PRIMARY PROCEDURE/OPERATION: Electrophysiology study was performed by Dr. Harkins. RADIOLOGICAL INVESTIGATION: Echocardiography showed LVH, moderate pulmonary regurgitation, normal EF . SIGNIFICANT LABORATORY DATA: WBC 8.7, hemoglobin 11.4, platelet 227. Sodium 137, potassium 3.3, BUN 20, creatinine 1.83, calcium 8.4, LDL 69. Thyroid function test negative. Troponin 0.073. BNP 37. 5. LFT normal. Urinalysis unremarkable. DISCHARGE MEDICATIONS: Amlodipine 10 mg p.o. at bedtime, aspirin 81 mg p.o. daily, Lipitor 20 mg p.o . at bedtime, Coreg 6.25 mg p.o. b.i.d., clonidine 0.2 mg p.o. t.i.d., ferrous sulfate 325 mg p.o. da zena, hydralazine 100 mg p.o. t.i.d., Keppra 1000 mg p.o. in the morning and 500 mg at bedtime, lisino pril 40 mg p.o. daily, metformin 500 mg p.o. b.i.d., Aldactone 25 mg p.o. daily. CONTRAINDICATIONS: None. CODE STATUS: FULL CODE. INPATIENT CONSULTANTS: Dr. Shahana Mijares was consulted for SVT. TEST RESULTS PENDING ON DISCHARGE: None. ALLERGIES: No known drug allergy. DISCHARGE PLAN: Post hospital, the patient will follow up with primary care physician in 1 week. HOSPITAL COURSE: A 66-year-old male who had outpatient basis colonoscopy procedure for his anemia. After the procedure, the patient developed SVT. He was feeling palpitations, SVT improved with vasov agal maneuver and he was sent to emergency room for evaluation. In the emergency room, his workup wa s unremarkable. He was admitted to telemetry floor. He did not have any further SVT while in hospit al. We consulted Electrophysiology and they recommended to do electrophysiology study. Echocardiogr aphy showed LVH and moderate pulmonary regurgitation. Electrophysiology study did not show any induc ible SVT and he did not require any ablation. Initially, the patient was admitted as observation, but subsequently we changed to inpatient status. While in hospital, the patient remained hemodynamically stable. Currently, he is in sinus rhythm. The patient is seen and examined at bedside today. PHYSICAL EXAMINATION: VITAL SIGNS: Currently temperature 98.9, pulse 75, respiratory rate 16, saturation 95% on room air, blood pressure 144/84, weight 208 pounds. GENERAL: The patient is currently alert, awake, no acute distress. HEAD: Normocephalic, atraumatic. EYES: Pupils round, reactive to light. Extraocular muscle intact. ENT: Oropharynx within normal limits. Moist mucous membranes, no oral lesion, no pharyngeal erythem a, no exudate. NECK: Supple, no JVD, no thyromegaly, no carotid bruit. LUNGS: Clear to auscultation without any rhonchi or rales. CARDIAC: S1, S2 regular without any murmur. ABDOMEN: Soft and benign. EXTREMITIES: No edema. NEUROLOGIC: Nonfocal examination. The patient will continue all his previous medications without any change. Please see discharge. jacquelyn martinez for discharge medication.
[2017-08-21 11:20] VITALS: BP 127/74; TEMP 98.7
--- NOTE | 2017-08-21 11:59 | PDOC.CTH ---
<Mariela Richeyna - Last Filed: 08/21/17 11:57> Cardiology Progress Note - Subjective EP progress note: Patient seen and evaluated. No new cardiac issues overnight. Patient appears confortable and content. At baseline mental status. ROS extremely limited due to cognitive impairment - Objective Vital Signs Temp Pulse Resp BP Pulse Ox 08/21/17 11:19 98.7 F 79 16 127/74 96 08/21/17 08:00 98.9 F 75 16 95 08/21/17 07:28 98.9 F 75 16 144/84 H 95 08/21/17 04:00 98.3 F 75 18 136/83 96 08/21/17 02:44 73 08/21/17 00:00 98.2 F 73 18 126/78 97 Weight 208 lb 08/20/17 08/21/17 08/22/17 06:59 06:59 06:59 Intake Total 400 50 Output Total 0 Balance 400 50 - Physical Examination General/Neuro: alert & oriented x3, NAD Neck: no JVD present Lungs: CTA, unlabored respirations Heart: RRR Abdomen: NT/ND, soft Other PE findings: left groin access site stable. no hematoma. dressing removed. leave SHANE - Labs Result Diagrams: 08/19/17 04:11 08/21/17 04:10 Troponin/CKMB CK-MB (CK-2) 1.9 ng/mL (0-6.6) 08/18/17 12:24 Troponin I 0.073 ng/mL (< 0.028) H 08/18/17 19:43 - Assessment/Plan 1. SVT during colonoscopy, not seen on monitor. S/P EPS on 08/20/17. Non inducible. + dual AV node physiology but no AVNRT. Borderline sinus node dysfunction. Continue routine management as outpatient. Ok for DC by EP <Dyllan Harkins - Last Filed: 08/24/17 15:31> Cardiology Progress Note - Objective Weight 208 lb - Labs Result Diagrams: 08/19/17 04:11 08/21/17 04:10 Troponin/CKMB CK-MB (CK-2) 1.9 ng/mL (0-6.6) 08/18/17 12:24 Troponin I 0.073 ng/mL (< 0.028) H 08/18/17 19:43 Attending Addendum - Attending Addendum Date/Time: 08/24/17 1531 I personally evaluated the patient and discussed the management with Ms Richey. I agree with the History, Examination, Assessment and Plan documented above with any addition or exceptions noted below.
== END 2017-08-21 13:48 | disposition home or self-care (01) | DRG 274 ==
LOC: ERS 11:54 → 2SW 16:30 → 2NO 21:40 → OBSVTOIN 08-19 09:55
PROVIDERS: ADMIT Student in an Organized Health Care Education/Training Program; ATTEND Student in an Organized Health Care Education/Training Program
PROC: 4A023FZ Measurement of Cardiac Rhythm, Percutaneous Approach (ICD-10-PCS; principal; 2017-08-20)
PROC: 4A0234Z Measurement of Cardiac Electrical Activity, Percutaneous Approach (ICD-10-PCS; 2017-08-20)
DX: I47.1 Supraventricular tachycardia (principal); I24.8 Other forms of acute ischemic heart disease; I69.351 Hemiplegia and hemiparesis following cerebral infarction affecting right dominant side; I16.0 Hypertensive urgency; E87.6 Hypokalemia; G40.909 Epilepsy, unspecified, not intractable, without status epilepticus; F41.9 Anxiety disorder, unspecified; F32.9 Major depressive disorder, single episode, unspecified; E11.9 Type 2 diabetes mellitus without complications; E78.5 Hyperlipidemia, unspecified; I10 Essential (primary) hypertension; Z79.899 Other long term (current) drug therapy; Z79.82 Long term (current) use of aspirin; Z79.84 Long term (current) use of oral hypoglycemic drugs; E66.9 Obesity, unspecified; Z68.30 Body mass index [BMI] 30.0-30.9, adult; F89 Unspecified disorder of psychological development
CPT/HCPCS: 36415; 36416; 76942; 80048; 80053; 80061; 81001; 82550; 82553; 83735; 83880; 84439; 84443; 84481; 84484; 85025; 93005; 93010; 93306; 93621; 93623; C1730; C1769; J1644; J2001; J2250; J3010

== ENCOUNTER 2018-04-30 14:25 | Inpatient (IN) | payer MEDICARE, MEDICAID ==
[2018-04-30 15:20] LABS: Hemoglobin 13.6 g/dL (14.0-18.0); Mean Corpuscular HGB CONC 32.5 g/dL (32.0-36.0); Mean Corpuscular Hemoglobin 22.5 pg (27.0-31.0); Mean Corpuscular Volume 69.1 fL (78.0-98.0); Mean Platelet Volume 5.9 fL (7.4-10.4); Platelet Count 212 thou/uL (130-400); RBC Distribution Width 17.5 % (11.5-14.5); Red Blood Cell (RBC) Count 6.04 mill/uL (4.70-6.10); White Blood Cell (WBC) Count 8.5 thou/uL (4.8-10.8)
[2018-04-30 15:24] LABS: PTT 27.2 SEC (22.9-36.1); Prothrombin Time 13.2 SEC (12.0-14.7)
[2018-04-30 15:41] LABS: ALT (SGPT) 16 U/L (8-55); AST (SGOT) 26 U/L (5-34); Acetaminophen Less than 6.0 mcg/mL (10.0-30.0); Albumin 4.3 g/dL (3.4-4.8); Alcohol Less than 10 mg/dL (Less than 10); Alkaline Phosphatase 67 U/L (40-150); Anion Gap 14 mmol/L (10-20); BUN (Urea Nitrogen) 28 mg/dL (8.4-25.7); Bilirubin, Total 0.3 mg/dL (0.2-1.2); CK (CPK) 490 U/L (30-200); Calc. Creatinine Clearance 0 mL/min (70-130); Calcium 9.5 mg/dL (7.8-10.44); Carbon Dioxide 28 mmol/L (23-31); Chloride 97 mmol/L (98-107); Estimated GFR-MDRD 61; Globulin 3.6 g/dL (2.4-3.5); Glucose 98 mg/dL (80-115); Lipase 76 U/L (8-78); Protein, Total 7.9 g/dL (5.8-8.1); Salicylate Less than 8.0 mg/dL (15.0-30.0); Sodium 135 mmol/L (136-145)
[2018-04-30 15:43] LABS: Anisocytosis SLIGHT = 6-15 cells (100X) (0-5/hpf); Band 7 % (5-11); Eosinophils 3 % (0-10); Hypochromia SLIGHT = 6-15 cells (100X) (0-5/hpf); Lymphocytes 15 % (21-51); MDiff Complete? YES; Microcytosis SLIGHT = 6-15 cells (100X) (0-5/hpf); Monocytes 11 % (0-10); Neutrophil 64 % (42-75); Platelet Morphology Comment Appears Adequate
--- NOTE | 2018-04-30 16:20 | CT ---
HEAD CT WITHOUT CONTRAST: Date: 04/30/18 HISTORY: Right-sided weakness. Unable to use right side extremities. Speech change. Onset at 9:30 this morning . COMPARISON: None. CORRELATION: Brain MRI without contrast dated 06/01/17. FINDINGS: No parenchymal hemorrhage. No extra-axial hematoma. No midline shift. Basilar cisterns are patent. Ma lacic changes involving the left parietal and temporal lobes with associated ex vacuo dilatation of t he left lateral ventricle, similar to the previous MRI. White matter hypodensities due to chronic sma ll vessel ischemic changes are also noted. With the exception of the area of malacic change as described above, cortical beatty-white matter diffe rentiation is preserved. Calvarium is intact. Adequate aeration of the sinuses and mastoid air cells. IMPRESSION: No acute intracranial process. Results of study discussed with Dr. Tilley on 04/30/18 at 1529 hours. CODE CR. POS: [facility]
--- NOTE | 2018-04-30 16:21 | RAD ---
PORTABLE CHEST: Date: 04/30/18 HISTORY: Stroke symptoms. COMPARISON: None. FINDINGS: Heart size is enlarged. Mediastinal structures appear unremarkable. Lungs are clear of infiltrates. N o signs of failure. IMPRESSION: Marked cardiomegaly. POS: [facility]
[2018-04-30 17:39] LABS: Bilirubin Small (Negative); Blood, Urine Negative (Negative); Clarity CLEAR (Clear); Glucose, Urine (Dipstick) Negative (Negative); Leukocyte Trace (Negative); Nitrite Negative (Negative); Protein, Urine (Dipstick) 100 mg/dL (Neg-Trace); Specific Gravity, Urine 1.017 (1.002-1.036)
[2018-04-30 17:41] LABS: Bacteria/HPF None Seen HPF (None Seen); Squamous Epithelial 0-3 HPF (0-3); WBC/HPF 0-3 HPF (0-3)
[2018-04-30 17:46] LABS: Pathc Cast-AUWi Flag 3.77 (0-2.49)
[2018-04-30 17:48] LABS: Amphetamine Not Detected (NotDetected); Barbiturates Screen Not Detected (NotDetected); Benzodiazepine Screen Not Detected (NotDetected); Cocaine Metabolite Screen Not Detected (NotDetected); Medtox Control Line Valid? VALID (VALID); Medtox Reader # READER 4; Methadone Not Detected (NotDetected); Methamphetamine Not Detected (NotDetected); Opiate Screen Not Detected (NotDetected); Oxycodone Screen Not Detected (NotDetected); Phencyclidine (PCP) Not Detected (NotDetected); THC/Cannabinoid Screen Not Detected (NotDetected); Tricyclic Screen Not Detected (NotDetected)
[2018-04-30 17:52] LABS: Hyaline Casts/LPF 0-3 HYALINE CAST LPF (0-3 Hyaline); Manual Microscopic Reviewed? No Path Casts Seen; RBC/HPF None Seen HPF (0-3)
[2018-04-30] MEDS ORDERED: Aspirin Chewable 81 MG TAB ONE (18:16)
[2018-04-30] MEDS ORDERED: Ondansetron PF 4 MG/2 ML Vial IVP PRN (22:14)
[2018-04-30] MEDS ORDERED: Ondansetron ODT 4 MG TAB SL PRN (22:14)
[2018-04-30] MEDS ORDERED: Sodium Chloride 0.9% 1,000 ML IV SCH (22:15)
[2018-04-30 23:03] VITALS: BMI 29.7
[2018-05-01 05:52] LABS: Anion Gap 16 mmol/L (10-20); BUN (Urea Nitrogen) 26 mg/dL (8.4-25.7); Calc. Creatinine Clearance 67 mL/min (70-130); Calcium 8.7 mg/dL (7.8-10.44); Carbon Dioxide 25 mmol/L (23-31); Cardiac Risk 2.6 (Less than 4.5); Chloride 100 mmol/L (98-107); Cholesterol 111 mg/dl (< 200 Desired); Estimated GFR-MDRD 64; Glucose 80 mg/dL (80-115); HDL Cholesterol 43 mg/dL (>60 Neg Risk); LDL Cholesterol, Calculated 48 mg/dL; Sodium 137 mmol/L (136-145); Triglycerides 101 mg/dL (Less than 150)
[2018-05-01] MEDS ORDERED: Dextrose 50% Abboject 50 ML SYRINGE SLOW IVP PRN (05:53)
[2018-05-01] MEDS ORDERED: Dextrose 5% in Water 1,000 ML IV PRN (05:53)
[2018-05-01 06:32] LABS: Band 1 % (5-11); Eosinophils 100 % (0-10); Hemoglobin 10.9 g/dL (14.0-18.0); Hypochromia SLIGHT = 6-15 cells (100X) (0-5/hpf); Lymphocytes 15 % (21-51); MDiff Complete? YES; Mean Corpuscular HGB CONC 33.1 g/dL (32.0-36.0); Mean Corpuscular Hemoglobin 22.8 pg (27.0-31.0); Mean Corpuscular Volume 68.8 fL (78.0-98.0); Mean Platelet Volume 5.9 fL (7.4-10.4); Monocytes 6 % (0-10); Neutrophil 78 % (42-75); Platelet Count 189 thou/uL (130-400); Platelet Morphology Comment Appears Adequate; Red Blood Cell (RBC) Count 4.79 mill/uL (4.70-6.10); White Blood Cell (WBC) Count 6.3 thou/uL (4.8-10.8)
--- NOTE | 2018-05-01 07:27 | ULT ---
CAROTID ULTRASOUND WITH PRABHAKAR SCALE AND DOPPLER DUPLEX COLOR FLOW IMAGING SPECTRAL ANALYSIS PERFORMED: DATE: 05/01/18 CLINICAL INDICATION: TIA. 67-year-old male. FINDINGS: There is scattered mild/intimal thickening atherosclerotic calcification of the carotid arteries. PEAK SYSTOLIC VELOCITY (cm/s): Right CCA 136 Left CCA 104 Right ICA 50 Left ICA 76 There is antegrade flow within the visualized bilateral vertebral arteries. IMPRESSION: 1. No hemodynamically significant stenosis of the right internal carotid artery. 2. No hemodynamically significant stenosis of the left internal carotid artery. POS: [facility]
--- NOTE | 2018-05-01 07:31 | HP ---
PRIMARY CARE PHYSICIAN: Dr. Ancelmo Duarte. CODE STATUS: Full code. TIME OF EVALUATION: 11:00 p.m. CHIEF COMPLAINT: Stroke-like symptoms. HISTORY OF PRESENT ILLNESS: Information has been gathered from records and nursing staff since the patient is unable to give any history. A 67-year-old male patient with past medical history of CVA. The patient was brought to the hospital as the patient was having difficulties using the right side. The patient also has changes in the speech. The symptoms had been noticed around 9:30 a.m. The patient reported not being at baseline. He is usually able to walk with a walker. The patient lives with his in an assisted living facility in [place], [place]. Reportedly, the patient has been declining in the past six months. REVIEW OF SYSTEMS: Unable to obtain. PAST MEDICAL HISTORY: The patient has CVA, diabetes, hypertension, and neurological disease including epilepsy and dementia. PAST SURGICAL HISTORY: Unable to obtain. PSYCHIATRIC HISTORY: Schizophrenia. SOCIAL HISTORY: Lives in jail. No alcohol. No drugs. No smoking history. FAMILY HISTORY: Unable to obtain due to the patient's mental status. KNOWN ALLERGIES: No known drug allergies. REPORTED MEDICATIONS: 1. Amlodipine. 2. Aspirin. 3. Atorvastatin. 4. Carvedilol. 5. Clonidine. 6. Ferrous sulfate. 7. Hydralazine. 8. Lisinopril. 9. Metformin. 10. Keppra. 11. Spironolactone. 12. Citalopram. PHYSICAL EXAMINATION: VITAL SIGNS: On presentation; blood pressure 140/79 with heart rate 87, respiratory rate was 16, temperature 98.2, and oxygen saturation was 98% on room air. GENERAL APPEARANCE: The patient is alert, in good mood, disoriented. HEENT: Eyes, normal conjunctivae. Moist oral mucosa. Anicteric. NECK: No JVD. RESPIRATORY: Bilateral air entry. No rales, no wheezes. Symmetric expansion. CARDIOVASCULAR: Normal rate, regular rhythm. No murmurs, no gallops. No edema. ABDOMEN: Soft. Normal bowel sounds. MUSCULOSKELETAL: Seems to be at baseline range of motion and strength. No tenderness except on the right side that seems to be weaker, but not significantly. Symptoms might be improving. SKIN: Warm, intact. No pallor. No rash. No redness. Peripheral pulses are present. Capillary refill seems to be intact. NEUROLOGIC: Unable to fully explore. Has some weakness on the right side more than the left. PSYCHIATRIC: Unable to explore. The patient is talkative, but disoriented. DIAGNOSTIC DATA: EKG was reviewed. The patient has normal sinus rhythm, ventricular rate 71, MI 122, QRS 90, QT corrected 445. Brain CT was done and the patient has no acute intracranial process. Chest x-ray was done, the patient has marked cardiomegaly. LABORATORY DATA: The patient has white count 8.5, hemoglobin 13.6, MCV 69.1, and platelet count 212. Coagulation; PT 13.2, INR 1.0, and PTT 27.2. Chemistry; sodium 135, potassium 4.0, chloride 97, carbon dioxide 28, anion gap 14, BUN 28, and creatinine 1.4 and previous creatinine was 1.3, so this is old. GFR 61. CK 490. Globulin 3.6. Urine was negative for urinary infection and drug screen was negative. ASSESSMENT AND PLAN: The patient will be placed in the hospital with following medical problems: 1. Possible stroke/transient ischemic attack symptoms, might have been improving diagnosed as severe. We will follow stroke protocol. We will do MRI, echo, and carotid Doppler, Neurology consult. 2. History of dementia, the patient is talkative and in good mood, however, disoriented, will need support as inpatient. 3. Hyponatremia, sodium 135. This is mild. No need for any acute intervention at this point. 4. Chronic kidney disease, stage 3. GFR 61 and creatinine 1.41. These have been stable from previous records. We will monitor kidney function, we will treat accordingly. 5. He has elevated CK, is mild, could be related to the patient's decreasing mobility. No need for any acute intervention at this point. 6. Uncontrolled blood pressure, systolic 159, reconcile home medications. We will allow permissive hypertension due to new onset neurological symptoms. 7. Controlled diabetes with sugar 98, reconcile home medications and place the patient on sliding scale for DM control. 8. Deep venous thrombosis prophylaxis. Job ID: [id number]
[2018-05-01] MEDS: Aspirin 81 mg Enteric Coated Tablet PO SCH (08:42)
[2018-05-01] MEDS: Ferrous Sulfate 325 MG TAB PO SCH (08:42)
[2018-05-01] MEDS: Enoxaparin Sodium 40 MG/0.4 ML SYRINGE SC SCH (08:42)
[2018-05-01] MEDS ORDERED: Carvedilol 6.25 MG TAB PO SCH (09:00)
[2018-05-01] MEDS ORDERED: levETIRAcetam 500 MG TAB PO SCH (09:00)
--- NOTE | 2018-05-01 09:20 | CON ---
DATE OF CONSULTATION: 04/30/2018 CONSULTING PHYSICIAN: Hospitalist Services. IMPRESSION: Possible transient ischemic attack based on reports from the emergency room. PLAN: Add Plavix. HISTORY OF PRESENT ILLNESS: Mr. Johnson is a 67-year-old man with past history of hypertension and some degree of dementia. He apparently had some right-sided weakness yesterday noted by the family. He was brought to the emergency room for evaluation. His CT of the brain did not show any acute ischemic changes. His symptoms essentially resolved. He had a carotid ultrasound, which did not show any extracranial stenosis. His vital signs have otherwise been stable and he is only complaining of headache. PAST MEDICAL HISTORY: Hypertension. ALLERGIES: NONE. SOCIAL HISTORY: No tobacco or illicit drug use. FAMILY HISTORY: Noncontributory. MEDICATION LIST: Included aspirin and a statin. REVIEW OF SYSTEMS: Limited due to his memory impairment. PHYSICAL EXAMINATION: GENERAL: He is a well-nourished elderly man, sitting up in bed, eating breakfast. VITAL SIGNS: Blood pressure 177/88, pulse 78, respirations 16, and temperature 98.2. HEENT: Pupils are equal and reactive. Conjunctivae are clear. Oropharynx clear. NECK: Supple. No lymphadenopathy. EXTREMITIES: No cyanosis, clubbing, or edema. NEUROLOGIC: He was alert and cooperative. His speech was fluent and clear. He was a poor historian. His cranial nerves appear to be intact without any facial asymmetry. Motor exam showed good strength bilaterally without fix or drift. Bekfyx-nr-nxat movements were symmetric. Sensation was intact to touch. Gait was not tested, but reportedly he gets around with a walker. No abnormal movements were seen. LABORATORY STUDIES: Included a CBC, coags, chemistry panel, urinalysis, and tox screen were all unremarkable with a cholesterol ratio of 2.6. Imaging was reviewed. SUMMARY: An elderly man, who reportedly had some transient right-sided weakness. He was on aspirin and statin prior to admission. I would go ahead and add Plavix for the next 6 months. Job ID: [id number]
[2018-05-01] MEDS ORDERED: Clopidogrel Bisulfate 75 MG TAB PO SCH (13:15)
--- NOTE | 2018-05-01 13:56 | MRI ---
NONCONTRAST MRI BRAIN: Date: 05/01/18 HISTORY: TIA. Stroke-like symptoms. Patient unable to use right-sided extremities and experiences changes in s peech, with onset of symptoms at 0930 hours this morning. COMPARISON: 06/01/17. FINDINGS: There is significant motion artifact on multiple sequences, which does degrade image quality, but his exam is diagnostic. Images were repeated with continued motion present, especially on the T2-weighte d sequence. Again noted are patchy and confluent areas of signal abnormality in the periventricular and subcortic al white matter likely attributable to chronic small vessel ischemic changes. Again noted is the area of encephalomalacia and gliosis involving the left cerebral hemisphere, predominantly posteriorly, w ith associated ex vacuo dilatation of the occipital horn and temporal horn of the left lateral ventri martha. There is no evidence of an acute infarction. Cerebral volume loss is present. Septum pellucidum and third ventricle are on the midline. The flow-v oids are difficult to evaluate, again related to significant motion artifact on the T2-weighted image s. MRI of the brain is otherwise overall unchanged from prior exam. IMPRESSION: 1. Limited examination due to significant patient motion. However, no definite acute intracranial ab normality is demonstrated. 2. Stable encephalomalacia in the posterior left cerebral hemisphere with associated gliosis superim posed on moderate chronic small vessel ischemic changes, not significantly progressed from prior exam . POS: [facility]
[2018-05-01] MEDS: hydrALAZINE 25 MG TAB PO SCH ×2 (14:40→20:20)
[2018-05-01] MEDS: Carvedilol 6.25 MG TAB PO SCH (16:11)
--- NOTE | 2018-05-01 16:18 | PDOC.PN ---
- Subjective Encounter Start Date: 05/01/18 Encounter Start Time: 11:30 The patient is a 67 year old AAM with PMH significant for CVA and dementia, who presented with worsening RUE weakness. He lives in assisted living and has a caregiver who I spoke to on the phone today, who told me he was concerned about the above symptoms. At baseline, he can walk with this cane. To me, the patient voices no complaints. He denies CP, SOB, N/V. He was seen by Dr. Dunbar. - Objective Resuscitation Status - Order Detail: 04/30/18 23:44 Resuscitation Status Routine Resuscitation Status: FULL: Full Resuscitation Vital Signs & Weight: Vital Signs (12 hours) Temp Pulse Resp BP BP Pulse Ox 05/01/18 16:11 174/83 H 05/01/18 16:00 99.4 F 75 16 186/89 H 94 L 05/01/18 14:40 78 05/01/18 13:04 160/90 H 05/01/18 12:00 98.4 F 78 20 98 05/01/18 07:40 98.2 F 78 16 177/88 H 99 Weight Weight 195 lb 6 oz I&O: 04/30/18 05/01/18 05/02/18 06:59 06:59 06:59 Intake Total 960 Balance 960 Result Diagrams: 05/01/18 05:03 05/01/18 05:03 Additional Labs: Accuchecks 05/01/18 05/01/18 10:44 05:59 POC Glucose 145 H 88 Phys Exam - Physical Examination Constitutional: NAD HEENT: PERRLA Neck: no JVD Respiratory: no wheezing, no rales, no rhonchi, wheezing present Cardiovascular: RRR, no significant murmur Gastrointestinal: soft, non-tender, positive bowel sounds Musculoskeletal: no edema The patient has 5/5 strength through both lower ext. RUE 3/5 LUE 4/5 Lymphatic: no nodes Dx/Plan (1) TIA (transient ischemic attack) Code(s): G45.9 - TRANSIENT CEREBRAL ISCHEMIC ATTACK, UNSPECIFIED Status: Acute (2) Weakness due to cerebrovascular accident (CVA) Code(s): NCL5332 - Status: Chronic (3) Diabetes type 2, controlled Code(s): E11.9 - TYPE 2 DIABETES MELLITUS WITHOUT COMPLICATIONS Status: Chronic Qualifiers: Diabetes mellitus complication status: without complication (4) H/O: CVA (cerebrovascular accident) Code(s): Z86.73 - PRSNL HX OF TIA (TIA), AND CEREB INFRC W/O RESID DEFICITS Status: Chronic (5) Hypertension Code(s): I10 - ESSENTIAL (PRIMARY) HYPERTENSION Status: Chronic - Plan * . The patient's MRI is stable from previous exam; per neurology recommendations, will add Plavix to his regimen. PT/OT eval pending. Will likely be able to discharge the patient back to assisted living tomorrow. Review of Systems - Review of Systems Eyes: negative: Pain Respiratory: negative: Cough, Shortness of Breath Cardiovascular: negative: chest pain, palpitations Gastrointestinal: negative: Vomiting Musculoskeletal: negative: Neck Pain - Medications/Allergies Allergies/Adverse Reactions: Allergies Allergy/AdvReac Type Severity Reaction Status Date / Time No Known Drug Allergies Allergy Verified 08/18/17 17:17 Medications: Current Medications Acetaminophen (Tylenol) 650 mg PO Q4H PRN PRN Reason: Headache/Fever/Mild Pain (1-3) Aspirin (Ecotrin) 81 mg PO DAILY [facility] Last Admin: 05/01/18 08:42 Dose: 81 mg Atorvastatin Calcium (Lipitor) 20 mg PO HS [facility] Carvedilol (Coreg) 12.5 mg PO BID-[facility] Last Admin: 05/01/18 16:11 Dose: 12.5 mg Clopidogrel Bisulfate (Plavix) 75 mg PO DAILY [facility] Dextrose/Water (Dextrose 50%) 25 gm SLOW IVP PRN PRN PRN Reason: Hypoglycemia Enoxaparin Sodium (Lovenox) 40 mg SC 0900 [facility] Last Admin: 05/01/18 08:42 Dose: 40 mg Ferrous Sulfate (Feosol) 325 mg PO DAILY [facility] Last Admin: 05/01/18 08:42 Dose: 325 mg Glucagon (Glucagon) 1 mg IM PRN PRN PRN Reason: Hypoglycemia Hydralazine HCl (Apresoline) 25 mg PO TID [facility] Last Admin: 05/01/18 14:40 Dose: 25 mg Dextrose/Water (D5w) 1,000 mls @ 0 mls/hr IV .Q0M PRN PRN Reason: Hypoglycemia Insulin Human Lispro (Humalog) 0 units SC .MILD SLIDING SCALE PRN PRN Reason: Mild Correctional Scale Last Admin: 05/01/18 17:01 Dose: 5 unit Levetiracetam (Keppra) 1,000 mg PO BID [facility] Last Admin: 05/01/18 08:42 Dose: 1,000 mg Sodium Chloride (Flush - Normal Saline) 10 ml IVF PRN PRN PRN Reason: Saline Flush
[2018-05-01] MEDS: HumaLOG 300 UNITS/3 ML VIAL SC PRN (17:01)
[2018-05-01] MEDS: levETIRAcetam 500 MG TAB PO SCH (20:20)
[2018-05-01] MEDS: Atorvastatin Calcium 20 MG TAB PO SCH (20:20)
[2018-05-02] MEDS: Lorazepam 2 MG/ML VIAL SLOW IVP PRN (00:55)
[2018-05-02] MEDS ORDERED: Morphine 4 MG/ML VIAL SLOW IVP SCH (05:30)
[2018-05-02] MEDS: hydrALAZINE 25 MG TAB PO SCH ×3 (09:28→21:28)
[2018-05-02] MEDS: Citalopram 10 MG TAB PO SCH (09:28)
[2018-05-02] MEDS: Aspirin 81 mg Enteric Coated Tablet PO SCH (09:28)
[2018-05-02] MEDS: Carvedilol 6.25 MG TAB PO SCH ×2 (09:28→18:06)
[2018-05-02] MEDS: Ferrous Sulfate 325 MG TAB PO SCH (09:29)
[2018-05-02] MEDS: levETIRAcetam 500 MG TAB PO SCH ×2 (09:29→21:27)
[2018-05-02] MEDS: Clopidogrel Bisulfate 75 MG TAB PO SCH (09:30)
[2018-05-02] MEDS: Enoxaparin Sodium 40 MG/0.4 ML SYRINGE SC SCH (09:30)
[2018-05-02 10:20] LABS: #Lymphocytes 0.8 thou/uL (1.20-3.40); #Monocytes 0.4 thou/uL (0.11-0.59); #Neutrophils 5.8 thou/uL (1.40-6.50); %Basophils 0.4 % (0.0-1.0); %Eosinophils 0.3 % (0.0-10.0); %Lymphocytes 11.8 % (21.0-51.0); %Monocytes 5.4 % (0.0-10.0); %Neutrophils 82.1 % (42.0-75.0); Hemoglobin 11.8 g/dL (14.0-18.0); Mean Corpuscular Hemoglobin 21.7 pg (27.0-31.0); Mean Corpuscular Volume 65.8 fL (78.0-98.0); Mean Platelet Volume 6.3 fL (7.4-10.4); Platelet Count 193 thou/uL (130-400); RBC Distribution Width 16.9 % (11.5-14.5); Red Blood Cell (RBC) Count 5.46 mill/uL (4.70-6.10)
[2018-05-02 10:46] LABS: Anion Gap 16 mmol/L (10-20); BUN (Urea Nitrogen) 18 mg/dL (8.4-25.7); Calc. Creatinine Clearance 73 mL/min (70-130); Calcium 8.5 mg/dL (7.8-10.44); Carbon Dioxide 24 mmol/L (23-31); Chloride 98 mmol/L (98-107); Estimated GFR-MDRD 71; Glucose 263 mg/dL (80-115); Potassium 3.2 mmol/L (3.5-5.1); Sodium 135 mmol/L (136-145)
[2018-05-02] MEDS: HumaLOG 300 UNITS/3 ML VIAL SC PRN ×2 (10:56→21:28)
[2018-05-02] MEDS ORDERED: Amlodipine 10 MG TAB PO SCH (15:00)
--- NOTE | 2018-05-02 16:58 | RAD ---
ABDOMEN TWO VIEWS: HISTORY: Abdominal pain and tenderness. TECHNIQUE: Supine and upright views of the abdomen are obtained. FINDINGS: A large amount of stool is seen in the colon. No definite evidence of air-fluid level seen in the sm all bowel. No evidence of free intraperitoneal air is seen. Severe lumbar degenerative changes and levoscoliosis seen. There is a calcified lesion in the right upper quadrant of the abdomen. This may represent a large c alcified gallstones. Correlate with CT. Other possibilities could include an aneurysm. IMPRESSION: 1. Large calcified lesion, mid right abdomen. 2. Large amount of stool in the colon. POS: [facility]
[2018-05-02] MEDS: Acetaminophen 325 MG TAB PO PRN ×2 (18:08→21:31)
--- NOTE | 2018-05-02 19:49 | PDOC.PN ---
- Subjective Encounter Start Date: 05/02/18 Encounter Start Time: 15:00 The patient is a 67 yo AAM who presented with RLE and RUE weakness. He has been placed on Plavix by Dr. Miles. He walked today with PT without issue. He complains of diarrhea and diffuse abdominal pain. - Objective Resuscitation Status - Order Detail: 04/30/18 23:44 Resuscitation Status Routine Resuscitation Status: FULL: Full Resuscitation Vital Signs & Weight: Vital Signs (12 hours) Temp Pulse Pulse Pulse Resp BP BP 05/02/18 15:33 99.6 F 93 16 05/02/18 13:57 90 98 156/87 H 05/02/18 12:00 160/80 H 05/02/18 11:36 99.5 F 104 H 20 BP BP Pulse Ox 05/02/18 15:33 165/82 H 95 05/02/18 13:57 175/94 H 05/02/18 12:00 05/02/18 11:36 174/81 H 93 L Weight Weight 193 lb 4 oz I&O: 05/01/18 05/02/18 05/03/18 06:59 06:59 06:59 Intake Total 1440 2440 Output Total 400 Balance 1440 2040 Result Diagrams: 05/02/18 10:09 05/02/18 10:09 Additional Labs: Accuchecks 05/02/18 05/02/18 05/02/18 16:42 10:29 05:51 POC Glucose 124 H 254 H 132 H 05/02/18 05/01/18 00:40 20:16 POC Glucose 95 89 Phys Exam - Physical Examination Constitutional: NAD HEENT: PERRLA Neck: no nodes, no JVD, full ROM Respiratory: no wheezing, no rales, clear to auscultation bilateral Cardiovascular: RRR, no significant murmur Gastrointestinal: positive bowel sounds Positive distension, diffusely tender Musculoskeletal: no edema Lymphatic: no nodes Psychiatric: normal affect, A&O x 3 Dx/Plan (1) TIA (transient ischemic attack) Code(s): G45.9 - TRANSIENT CEREBRAL ISCHEMIC ATTACK, UNSPECIFIED Status: Acute (2) Weakness due to cerebrovascular accident (CVA) Code(s): AQK2472 - Status: Chronic (3) Diabetes type 2, controlled Code(s): E11.9 - TYPE 2 DIABETES MELLITUS WITHOUT COMPLICATIONS Status: Chronic Qualifiers: Diabetes mellitus complication status: without complication (4) H/O: CVA (cerebrovascular accident) Code(s): Z86.73 - PRSNL HX OF TIA (TIA), AND CEREB INFRC W/O RESID DEFICITS Status: Chronic (5) Hypertension Code(s): I10 - ESSENTIAL (PRIMARY) HYPERTENSION Status: Chronic (6) Abdominal pain Code(s): R10.9 - UNSPECIFIED ABDOMINAL PAIN Status: Acute (7) Diarrhea Code(s): R19.7 - DIARRHEA, UNSPECIFIED Status: Acute - Plan * . The patient has ambulated with PT and is back to baseline as far as his functional status/ neuro status. He is tolerating Plavix. He continues to complain of abdominal pain and diarrhea. No blood in stool. CT with and without oral contrast pending. Repeat labwork in the am. Review of Systems - Review of Systems Eyes: negative: Pain Respiratory: negative: Cough, Shortness of Breath Cardiovascular: negative: chest pain, palpitations Gastrointestinal: Abdominal Pain, Diarrhea. negative: Nausea, Hematochezia Musculoskeletal: negative: Neck Pain, Arm Pain Neurological: Weakness - Medications/Allergies Allergies/Adverse Reactions: Allergies Allergy/AdvReac Type Severity Reaction Status Date / Time No Known Drug Allergies Allergy Verified 08/18/17 17:17 Medications: Current Medications Acetaminophen (Tylenol) 650 mg PO Q4H PRN PRN Reason: Headache/Fever/Mild Pain (1-3) Last Admin: 05/02/18 18:08 Dose: 650 mg Amlodipine Besylate (Norvasc) 10 mg PO DAILY [facility] Aspirin (Ecotrin) 81 mg PO DAILY [facility] Last Admin: 05/02/18 09:28 Dose: 81 mg Atorvastatin Calcium (Lipitor) 20 mg PO HS [facility] Last Admin: 05/01/18 20:20 Dose: 20 mg Carvedilol (Coreg) 12.5 mg PO BID-[facility] Last Admin: 05/02/18 18:06 Dose: 12.5 mg Citalopram Hydrobromide (Celexa) 5 mg PO DAILY [facility] Last Admin: 05/02/18 09:28 Dose: 5 mg Clopidogrel Bisulfate (Plavix) 75 mg PO DAILY [facility] Last Admin: 05/02/18 09:30 Dose: 75 mg Dextrose/Water (Dextrose 50%) 25 gm SLOW IVP PRN PRN PRN Reason: Hypoglycemia Enoxaparin Sodium (Lovenox) 40 mg SC 0900 [facility] Last Admin: 05/02/18 09:30 Dose: 40 mg Ferrous Sulfate (Feosol) 325 mg PO DAILY [facility] Last Admin: 05/02/18 09:29 Dose: 325 mg Glucagon (Glucagon) 1 mg IM PRN PRN PRN Reason: Hypoglycemia Hydralazine HCl (Apresoline) 50 mg PO TID [facility] Last Admin: 05/02/18 15:20 Dose: 50 mg Dextrose/Water (D5w) 1,000 mls @ 0 mls/hr IV .Q0M PRN PRN Reason: Hypoglycemia Insulin Human Lispro (Humalog) 0 units SC .MILD SLIDING SCALE PRN PRN Reason: Mild Correctional Scale Last Admin: 05/02/18 10:56 Dose: 4 unit Levetiracetam (Keppra) 1,000 mg PO DAILY [facility] Last Admin: 05/02/18 09:29 Dose: 1,000 mg Levetiracetam (Keppra) 500 mg PO HS [facility] Last Admin: 05/01/18 20:20 Dose: 500 mg Lorazepam (Ativan) 0.5 mg SLOW IVP Q6H PRN PRN Reason: Anxiety/Agitation Last Admin: 05/02/18 00:55 Dose: 0.5 mg Sodium Chloride (Flush - Normal Saline) 10 ml IVF PRN PRN PRN Reason: Saline Flush
[2018-05-02] MEDS: Atorvastatin Calcium 20 MG TAB PO SCH (21:27)
[2018-05-03 06:00] LABS: Anion Gap 13 mmol/L (10-20); BUN (Urea Nitrogen) 26 mg/dL (8.4-25.7); Calc. Creatinine Clearance 50 mL/min (70-130); Calcium 8.8 mg/dL (7.8-10.44); Carbon Dioxide 28 mmol/L (23-31); Chloride 100 mmol/L (98-107); Estimated GFR-MDRD 46; Glucose 99 mg/dL (80-115); Potassium 3.3 mmol/L (3.5-5.1); Sodium 138 mmol/L (136-145)
[2018-05-03 06:12] LABS: Hemoglobin 11.5 g/dL (14.0-18.0); Mean Corpuscular HGB CONC 32.9 g/dL (32.0-36.0); Mean Corpuscular Hemoglobin 22.4 pg (27.0-31.0); Mean Platelet Volume 6.3 fL (7.4-10.4); Platelet Count 206 thou/uL (130-400); Red Blood Cell (RBC) Count 5.13 mill/uL (4.70-6.10); White Blood Cell (WBC) Count 7.2 thou/uL (4.8-10.8)
[2018-05-03 06:13] LABS: Hypochromia SLIGHT = 6-15 cells (100X) (0-5/hpf); Lymphocytes 43 % (21-51); MDiff Complete? YES; Monocytes 6 % (0-10); Neutrophil 51 % (42-75); Platelet Morphology Comment Appears Adequate; Target Cells SLIGHT = 2-5 cells (100X) (0-1/hpf)
[2018-05-03] MEDS ORDERED: Amlodipine 10 MG TAB PO SCH (09:00)
[2018-05-03] MEDS: hydrALAZINE 25 MG TAB PO SCH ×3 (09:46→20:40)
[2018-05-03] MEDS: Amlodipine 10 MG TAB PO SCH (09:47)
[2018-05-03] MEDS: Carvedilol 6.25 MG TAB PO SCH ×2 (09:47→18:18)
[2018-05-03] MEDS: Citalopram 10 MG TAB PO SCH (10:36)
[2018-05-03] MEDS: levETIRAcetam 500 MG TAB PO SCH ×2 (10:36→20:39)
[2018-05-03] MEDS: Ferrous Sulfate 325 MG TAB PO SCH (10:37)
[2018-05-03] MEDS: Enoxaparin Sodium 40 MG/0.4 ML SYRINGE SC SCH (10:37)
[2018-05-03] MEDS: Clopidogrel Bisulfate 75 MG TAB PO SCH (10:37)
[2018-05-03] MEDS: Aspirin 81 mg Enteric Coated Tablet PO SCH (10:37)
--- NOTE | 2018-05-03 11:41 | CT ---
CT ABDOMEN AND PELVIS WITH IV AND ORAL CONTRAST: 05/03/2018 PROVIDED CLINICAL HISTORY: Abdominal pain. Abdominal distention. Diarrhea. FINDINGS: The visualized lung bases are free of significant opacity. Simple appearing cysts are seen involving each kidney, as well as hypodensities too small to definiti vely characterize but also likely reflecting cysts. The liver, pancreas, and adrenal glands appear u nremarkable. There is a simple appearing splenic cyst. The spleen appears otherwise unremarkable. There is conspicuous colonic fecal retention. The distal sigmoid colon appears narrowed and demonstr ates apparent mural thickening. Mural thickening is suspected involving the rectum. The colon is at the upper limits of normal to mildly dilated and is predominantly gas-filled, involving the transver se colon. The appendix is not distinctly identified. There is no CT evidence for colonic volvulus. There is no evidence for small bowel obstruction. There is generalized increased density to the subcutaneous and visceral fat. There is no focal infla mmatory fat stranding apparent. No evidence for free intraperitoneal fluid or free intraperitoneal a ir. Radiation seeds are seen in the region of prostate gland. Scattered vascular calcifications are seen. There is a large, lamellated gallstone seen within the gallbladder, without apparent gallbladder dist ention or evidence for pericholecystic inflammatory change. The osseous structures demonstrate no concerning lytic or blastic lesions. Lumbar spine degenerative changes are seen. IMPRESSION: 1. Mural thickening involving the distal sigmoid colon and rectum, suspicious for proctocolitis. Th ere is moderate colonic fecal retention and moderate gaseous distention of the more proximal colon. Consider further evaluation with colonoscopy or contrast enema. 2. Large, lamellated gallstone without CT evidence for cholecystitis. 3. Other chronic findings as above. POS: [facility]
[2018-05-03] MEDS: HumaLOG 300 UNITS/3 ML VIAL SC PRN (12:08)
[2018-05-03] MEDS: metroNIDAZOLE 500 MG in Premix Bag 1 BAG IVPB SCH ×2 (14:07→22:10)
[2018-05-03] MEDS ORDERED: Fleet Enema 133 ML BOT PR SCH (15:45)
[2018-05-03 16:31] LABS: Iron 51 ug/dL (65-175); Iron Binding Capacity, Total 181 mcg/dL (261-462)
--- NOTE | 2018-05-03 16:43 | PDOC.PN ---
- Subjective Encounter Start Date: 05/03/18 Encounter Start Time: 16:41 Patient remains at baseline. Denies chest pain, palpitations, shortness of breath. Does report continued abdominal pain, but improved diarrhea. CT showing proctocollitis, GI consulted. - Objective Resuscitation Status - Order Detail: 04/30/18 23:44 Resuscitation Status Routine Resuscitation Status: FULL: Full Resuscitation Vital Signs & Weight: Vital Signs (12 hours) Temp Pulse Pulse Pulse Resp BP BP 05/03/18 14:10 84 150/82 H 05/03/18 14:00 98.9 F 80 16 05/03/18 11:26 99.1 F 81 16 05/03/18 10:38 05/03/18 09:47 90 191/99 H 05/03/18 09:46 90 191/99 H 05/03/18 09:28 90 90 191/99 H 05/03/18 07:37 98.8 F 81 16 BP BP Pulse Ox 05/03/18 14:10 05/03/18 14:00 181/91 H 95 05/03/18 11:26 157/87 H 93 L 05/03/18 10:38 172/91 H 05/03/18 09:47 05/03/18 09:46 05/03/18 09:28 200/102 H 05/03/18 07:37 170/94 H 94 L Weight Weight 189 lb I&O: 05/02/18 05/03/18 05/04/18 06:59 06:59 06:59 Intake Total 1440 2640 275 Output Total 400 Balance 1440 2240 275 Result Diagrams: 05/03/18 05:20 05/03/18 05:20 Additional Labs: Accuchecks 05/03/18 05/03/18 05/02/18 10:53 06:20 20:38 POC Glucose 174 H 106 164 H 05/02/18 16:42 POC Glucose 124 H Phys Exam - Physical Examination Constitutional: NAD HEENT: PERRLA, moist MMs, oral pharynx no lesions Neck: no nodes, no JVD Respiratory: no wheezing, clear to auscultation bilateral Cardiovascular: RRR, no significant murmur Gastrointestinal: soft, positive bowel sounds Diffuse tenderness noted Musculoskeletal: no edema, pulses present Neurological: non-focal Lymphatic: no nodes Psychiatric: normal affect Skin: no rash, cap refill <2 seconds Dx/Plan (1) Proctocolitis Code(s): K52.9 - NONINFECTIVE GASTROENTERITIS AND COLITIS, UNSPECIFIED Status : Acute (2) Abdominal pain Code(s): R10.9 - UNSPECIFIED ABDOMINAL PAIN Status: Acute (3) TIA (transient ischemic attack) Code(s): G45.9 - TRANSIENT CEREBRAL ISCHEMIC ATTACK, UNSPECIFIED Status: Acute (4) Diabetes type 2, controlled Code(s): E11.9 - TYPE 2 DIABETES MELLITUS WITHOUT COMPLICATIONS Status: Chronic Qualifiers: Diabetes mellitus complication status: without complication (5) Dyslipidemia Code(s): E78.5 - HYPERLIPIDEMIA, UNSPECIFIED Status: Chronic (6) H/O: CVA (cerebrovascular accident) Code(s): Z86.73 - PRSNL HX OF TIA (TIA), AND CEREB INFRC W/O RESID DEFICITS Status: Chronic (7) Hypertension Code(s): I10 - ESSENTIAL (PRIMARY) HYPERTENSION Status: Chronic - Plan cont current plan of care, continue antibiotics, PT/OT, DVT proph w/lovenox * Patient started on IV cipro and flagyl * Repeat blood cultures as 1/2 positive for coag neg staph * Consult placed for GI for evaluation of proctocollitis * Continue regimen per Dr Dunbar neurologist * Monitor vitals and labs, repeat in the am * No further signs of bleeding
--- NOTE | 2018-05-03 17:04 | PDOC.EVN ---
Event Note - Event Note Event Note: case discussed withKARIN Everett, concur with plans
[2018-05-03] MEDS: Atorvastatin Calcium 20 MG TAB PO SCH (20:40)
[2018-05-03] MEDS: Polyethylene Glycol 3350 17 GM Packet PO SCH (20:40)
--- NOTE | 2018-05-03 21:42 | CON ---
DATE OF CONSULTATION: 05/03/2018 CHIEF COMPLAINT: Abdominal distention and abnormal CT scan. HISTORY OF PRESENT ILLNESS: Mr. Johnson is a 67-year-old man, who has apparently had progressive dementia over the last 6 months. He was admitted to the emergency room from the longterm with reported right-sided weakness and possible TIA. During his evaluation, he had an abdominal CT scan due to reported history of diarrhea and abdominal distention. The CT scan showed mural thickening involving the rectum and sigmoid colon with distention of the colon proximal to that and retained stool in the colon as well. A gallstone was also noted. GI was consulted to evaluate the abnormal CT findings. He does not recall having any recent bowel movements. The nursing staff today reports he had dry smear of a bowel movement, but no significant actual output today. It is unclear if he has actually had diarrhea prior to this or not. No known blood in the stool. The patient states that he has had some abdominal pain. He is not a lot reliable historian at this point with this dementia much beyond his current symptoms. PAST MEDICAL HISTORY: Diabetes mellitus, hypertension, dementia, epilepsy, stroke. PAST SURGICAL HISTORY: He had a colonoscopy in July of [address] Springer. Apparently, his mental status was much better at that point. It was done as an outpatient in the endoscopy center just as a direct access screening colonoscopy. FAMILY HISTORY: Negative for GI malignancy. SOCIAL HISTORY: No alcohol, tobacco, or drugs. ALLERGIES: NO KNOWN DRUG ALLERGIES. MEDICATIONS: Prior to admission include; 1. Citalopram. 2. Keppra. 3. Amlodipine. 4. Clonidine. 5. Spironolactone. 6. Lisinopril. 7. Ferrous sulfate. 8. Carvedilol. 9. Atorvastatin. 10. Aspirin. 11. Metformin. 12. Hydralazine. REVIEW OF SYSTEMS: Limited based on his dementia, but negative x10 systems reviewed except as stated in the history of present illness. PHYSICAL EXAMINATION: VITAL SIGNS: Temperature 98.9, pulse 84, blood pressure 150/82. GENERAL: He is oriented to his name only, not to the place or year. HEENT: His eyes have no scleral icterus. Oropharynx is clear without lesions. No cervical or supraclavicular lymphadenopathy. LUNGS: Clear to auscultation bilaterally. HEART: Regular rate and rhythm without murmur. ABDOMEN: Soft, nontender, and mildly distended. Bowel sounds are present. EXTREMITIES: No lower extremity edema. RECTAL: Attempt at digital disimpaction revealed actually no stool in the rectal vault. I was unable to elicit any air output with the rectal exam either. IMPRESSION: Constipation. Apparently, he had some overflow diarrhea prior to admission. He has no stool in the rectal vault by digital exam now. There was some thickening of the rectum and colon reported by CT with constipation associated with that. He just had a normal colonoscopy in July 2017, so I am not worried about a neoplastic process causing this. He could have some mild ischemia, but more likely just has a stercoral colitis. RECOMMENDATIONS: 1. We will start laxative regimen with MiraLAX and also give Fleet enema to initiate bowel movement. 2. He is noted to have microcytic anemia. I will check iron studies. 3. Dr. Springer should be back tomorrow. 4. I will hold the ferrous sulfate for now. Job ID: [id number]
[2018-05-04] MEDS: metroNIDAZOLE 500 MG in Premix Bag 1 BAG IVPB SCH ×2 (05:35→13:04)
[2018-05-04] MEDS: Enoxaparin Sodium 40 MG/0.4 ML SYRINGE SC SCH (08:48)
[2018-05-04] MEDS: Clopidogrel Bisulfate 75 MG TAB PO SCH (08:49)
[2018-05-04] MEDS: Aspirin 81 mg Enteric Coated Tablet PO SCH (08:49)
[2018-05-04] MEDS: Polyethylene Glycol 3350 17 GM Packet PO SCH ×3 (08:49→21:46)
[2018-05-04] MEDS: Amlodipine 10 MG TAB PO SCH (08:50)
[2018-05-04] MEDS: levETIRAcetam 500 MG TAB PO SCH ×2 (08:55→21:45)
[2018-05-04] MEDS: Carvedilol 6.25 MG TAB PO SCH ×2 (08:55→17:32)
[2018-05-04] MEDS: hydrALAZINE 25 MG TAB PO SCH ×3 (08:55→21:45)
[2018-05-04] MEDS: Citalopram 10 MG TAB PO SCH (08:56)
[2018-05-04] MEDS: Ferrous Sulfate 325 MG TAB PO SCH (08:57)
[2018-05-04] MEDS: HumaLOG 300 UNITS/3 ML VIAL SC PRN (13:04)
[2018-05-04] MEDS: Acetaminophen 325 MG TAB PO PRN (13:04)
--- NOTE | 2018-05-04 15:20 | PDOC.PN ---
- Subjective Encounter Start Date: 05/04/18 Encounter Start Time: 15:18 Patient lying in bed, he tolerated GI regimen and was able to have several BMs. He reports abdominal pain still present, but improved. He denies chest pain, shortness of breath, n/v/d. - Objective Resuscitation Status - Order Detail: 04/30/18 23:44 Resuscitation Status Routine Resuscitation Status: FULL: Full Resuscitation MAR Reviewed: Yes Vital Signs & Weight: Vital Signs (12 hours) Temp Pulse Resp BP BP Pulse Ox 05/04/18 11:50 98.6 F 72 16 139/64 96 05/04/18 08:55 95 138/86 05/04/18 08:50 95 138/86 05/04/18 08:00 95 05/04/18 07:52 99.1 F 84 17 182/92 H 95 05/04/18 04:00 99.4 F 80 18 160/85 H 94 L Weight Weight 193 lb 6.4 oz I&O: 05/03/18 05/04/18 05/05/18 06:59 06:59 06:59 Intake Total 2640 1265 420 Output Total 400 Balance 2240 1265 420 Result Diagrams: 05/03/18 05:20 05/03/18 05:20 Additional Labs: Accuchecks 05/04/18 05/04/18 05/03/18 10:52 05:18 19:51 POC Glucose 180 H 97 241 H 05/03/18 16:48 POC Glucose 118 H Radiology Reviewed by me: Yes Phys Exam - Physical Examination Constitutional: NAD HEENT: PERRLA, oral pharynx no lesions Neck: no nodes, no JVD Respiratory: no wheezing, clear to auscultation bilateral Cardiovascular: RRR, no significant murmur Gastrointestinal: soft Distention improved, tenderness improved Musculoskeletal: no edema, pulses present Neurological: non-focal, moves all 4 limbs Lymphatic: no nodes Psychiatric: normal affect, A&O x 3 Skin: no rash, cap refill <2 seconds Dx/Plan (1) Proctocolitis Code(s): K52.9 - NONINFECTIVE GASTROENTERITIS AND COLITIS, UNSPECIFIED Status : Acute (2) Abdominal pain Code(s): R10.9 - UNSPECIFIED ABDOMINAL PAIN Status: Acute (3) TIA (transient ischemic attack) Code(s): G45.9 - TRANSIENT CEREBRAL ISCHEMIC ATTACK, UNSPECIFIED Status: Acute (4) Diabetes type 2, controlled Code(s): E11.9 - TYPE 2 DIABETES MELLITUS WITHOUT COMPLICATIONS Status: Chronic Qualifiers: Diabetes mellitus complication status: without complication (5) Dyslipidemia Code(s): E78.5 - HYPERLIPIDEMIA, UNSPECIFIED Status: Chronic (6) H/O: CVA (cerebrovascular accident) Code(s): Z86.73 - PRSNL HX OF TIA (TIA), AND CEREB INFRC W/O RESID DEFICITS Status: Chronic (7) Hypertension Code(s): I10 - ESSENTIAL (PRIMARY) HYPERTENSION Status: Chronic - Plan cont current plan of care, continue antibiotics * GI team following, patient improved, but still complaining of abdominal pain. * Continue Bowel regimen * Continue ASA, plavix and statin therapy * Continue medical management * Possible discharge in next 24 hours
--- NOTE | 2018-05-04 16:39 | PRG ---
DATE OF SERVICE: 05/04/2018 SUBJECTIVE: Mr. Johnson had several bowel movements yesterday evening and then another this morning. After receiving enema and MiraLAX, his abdominal distention is significantly improved. He is having good bowel sounds. He has a bit of residual mild abdominal discomfort, but says this is doing a lot better and he is tolerating his diet. OBJECTIVE: VITAL SIGNS: Temperature 98.6, pulse 79, blood pressure 146/70, and 92% oxygen saturation on room air. GENERAL: No acute distress. HEART: Regular rate and rhythm. LUNGS: Clear to auscultation bilaterally. ABDOMEN: Mild distention. Tympanitic to percussion. Bowel sounds are present throughout. Soft and only mildly tender to palpation in the left lower quadrant. No guarding or rebound tenderness. EXTREMITIES: No peripheral edema. LABORATORY STUDIES: Hemoglobin 11.5, WBC 7.2, platelets 206. INR 1.0. Glucose 180. Ferritin is 146, iron 51, and TIBC 181, so iron studies were mixed consistent with chronic disease. ASSESSMENT AND PLAN: 1. Constipation, improved after fleets enema and increasing MiraLAX. 2. Abnormal CT with thickening of rectum and sigmoid colon. The patient appears to be back to his baseline with regard to symptoms. It may be that he experienced some transient colonic ischemia with mucosal edema secondary to that, but if so I would expect this to resolve very quickly and indeed his symptoms do seem to be resolving. We will not plan for any endoscopic investigation as he did have a colonoscopy within the past year. As his ferritin is within normal limits, I think it would be reasonable to hold his iron going forward and hopefully this will help him avoid further episodes of constipation. GI will sign off, please call back with any questions or concerns. From a GI perspective, it is okay for hospital discharge. Job ID: [id number]
[2018-05-04] MEDS: Atorvastatin Calcium 20 MG TAB PO SCH (21:45)
[2018-05-05] MEDS: Lorazepam 2 MG/ML VIAL SLOW IVP PRN (00:52)
[2018-05-05] MEDS: Polyethylene Glycol 3350 17 GM Packet PO SCH ×2 (10:23→17:08)
[2018-05-05] MEDS: Citalopram 10 MG TAB PO SCH (10:23)
[2018-05-05] MEDS: Aspirin 81 mg Enteric Coated Tablet PO SCH (10:23)
[2018-05-05] MEDS: hydrALAZINE 25 MG TAB PO SCH ×2 (10:23→17:08)
[2018-05-05] MEDS: Carvedilol 6.25 MG TAB PO SCH (10:24)
[2018-05-05] MEDS: Clopidogrel Bisulfate 75 MG TAB PO SCH (10:25)
[2018-05-05] MEDS: Ferrous Sulfate 325 MG TAB PO SCH (10:25)
[2018-05-05] MEDS: levETIRAcetam 500 MG TAB PO SCH (10:25)
[2018-05-05] MEDS: Amlodipine 10 MG TAB PO SCH (10:25)
[2018-05-05] MEDS: Enoxaparin Sodium 40 MG/0.4 ML SYRINGE SC SCH (10:25)
[2018-05-05] MEDS: HumaLOG 300 UNITS/3 ML VIAL SC PRN (11:17)
[2018-05-05 16:05] VITALS: BP 128/74; TEMP 99.5
[2018-05-05] MEDS ORDERED: Carvedilol 25 MG TAB PO SCH (17:00)
--- NOTE | 2018-05-05 21:18 | CON ---
DATE OF CONSULTATION: 05/05/2018 REASON FOR CONSULTATION: Wide complex tachycardia. HISTORY OF PRESENT ILLNESS: Mr. Johnson is a pleasant 67-year-old gentleman, who comes to the hospital for stroke-like symptoms. He was admitted. MRI ruled out any strokes. It was thought that he might have had a TIA, so was recommended to be started on Plavix. He had an echo that showed normal EF as well. During his admission, he was on telemetry monitoring and he was found to have a small nonsustained run of what appears to be either nonsustained SVT versus nonsustained VT as it is mildly wider than normal QRS. He has seen Dr. Harkins in the past for SVT. He did an EP study that he was not able to get any VT or any SVT provoked. He was treated medically for this. Mr. Johnson denies any chest pain, tightness, or pressure. Denies any shortness of breath. No syncope or presyncope. He is already on 12.5 b.i.d. of carvedilol. PAST MEDICAL HISTORY: 1. CVA in the past. 2. Type 2 diabetes. 3. Hypertension. 4. Epilepsy. 5. Mild mental retardation. PAST SURGICAL HISTORY: Colonoscopy in July of 2017. At that time, he had an episode of SVT with heart rate went to 160 beats per minute, requiring vagal maneuvers to terminate the arrhythmia. OUTPATIENT MEDICATIONS: Include: 1. Citalopram. 2. Keppra. 3. Amlodipine 10 mg a day. 4. Clonidine 0.2 p.o. t.i.d. 5. Aldactone 25 mg a day. 6. Ferrous sulfate. 7. Lipitor 20 at bedtime. 8. Aspirin 81 a day. 9. Metformin. 10. Hydralazine 50 mg t.i.d. 11. Plavix 75 mg a day. 12. Carvedilol 25 mg b.i.d. ALLERGIES: NO KNOWN DRUG ALLERGIES. SOCIAL HISTORY: No alcohol, tobacco, or drugs. FAMILY HISTORY: No early coronary artery disease. REVIEW OF SYSTEMS: A 12-point review of systems was done and was found to be negative unless stated in the history of present illness PHYSICAL EXAMINATION: VITAL SIGNS: Temperature 99.5, pulse 78, respiratory rate 20, saturation 96% on room air, blood pressure 128/74. GENERAL: Awake, alert, oriented x3, in no distress. HEENT: Normocephalic, atraumatic. NECK: Supple. LUNGS: Clear. CARDIOVASCULAR: S1 and S2. No S3 or S4. No murmurs. ABDOMEN: Soft. Positive bowel sounds. EXTREMITIES: No edema. SKIN: Warm and dry. LABORATORY DATA: Laboratory work was reviewed. CBC, coags, chemistry, UA and toxicology were all reviewed. Telemetry strip was reviewed. He had a very short run lasting about 3 seconds of nonsustained wide-complex rhythm. This could be just an aberrant SVT versus VT. ASSESSMENT AND PLAN: 1. Wide complex rhythm: He has had an EP study in the past that could not provoke either ventricular tachycardia or supraventricular tachycardia. Currently, because this is nonsustained, I would only treat with addition of a beta nicky. We will plan on bringing him back to the office in 1 month and will risk stratify him for ischemia at that point. This would not be the best time as he had a transient ischemic attack recently. 2. We will up titrate his Coreg from 12.5 to 25 b.i.d. for this. 3. He may be discharged home today. 4. We will follow up in the office in 1 month for risk stratification. Job ID: [id number]
== END 2018-05-05 17:18 | disposition home or self-care (01) | DRG 392 ==
LOC: ERS 14:25 → 2SE 18:13 → OBSVTOIN 05-03 11:57
PROVIDERS: ADMIT Internal Medicine; ATTEND Internal Medicine
DX: K52.9 Noninfective gastroenteritis and colitis, unspecified (principal); G45.9 Transient cerebral ischemic attack, unspecified; E87.1 Hypo-osmolality and hyponatremia; I12.9 Hypertensive chronic kidney disease with stage 1 through stage 4 chronic kidney disease, or unspecified chronic kidney disease; E78.5 Hyperlipidemia, unspecified; F03.90 Unspecified dementia, unspecified severity, without behavioral disturbance, psychotic disturbance, mood disturbance, and anxiety; G40.909 Epilepsy, unspecified, not intractable, without status epilepticus; N18.3 Chronic kidney disease, stage 3 (moderate); E11.22 Type 2 diabetes mellitus with diabetic chronic kidney disease; Z86.73 Personal history of transient ischemic attack (TIA), and cerebral infarction without residual deficits
CPT/HCPCS: 36415; 36416; 70450; 70551; 71045; 74019; 74177; 80048; 80053; 80061; 80306; 80307; 81003; 81015; 82140; 82550; 82728; 83540; 83550; 83630; 83690; 83880; 84146; 84443; 84484; 85025; 85610; 85730; 87040; 87086; 87149; 87324; 87449; 93005; 93306; 93880; 96360; 96361; J0744; J1650; J2060; J2270

== ENCOUNTER 2021-03-06 19:55 | Inpatient (IN) | payer MEDICARE, MEDICAID ==
[2021-03-06] MEDS ORDERED: hydrALAZINE 20 MG/ML VIAL SLOW IVP PRN (22:26)
[2021-03-06] MEDS ORDERED: Dextrose 50% Abboject 50 ML SYRINGE SLOW IVP PRN (22:26)
[2021-03-06] MEDS ORDERED: Ondansetron PF 4 MG/2 ML Vial IVP PRN (22:26)
[2021-03-06] MEDS ORDERED: Dextrose 5% in Water 1,000 ML IV PRN (22:26)
[2021-03-06] MEDS ORDERED: Insulin Regular 300 UNITS/3 ML VIAL SC PRN (22:26)
[2021-03-06] MEDS ORDERED: Acetaminophen 325 MG TAB PO PRN (22:53)
[2021-03-07 00:43] LABS: CKMB 4.3 ng/mL (0-6.6)
[2021-03-07 06:39] LABS: Hemoglobin 9.9 g/dL (14.0-18.0); Mean Corpuscular HGB CONC 33.4 g/dL (32.0-36.0); Mean Corpuscular Hemoglobin 23.3 pg (27.0-31.0); Mean Corpuscular Volume 69.7 fL (78.0-98.0); Platelet Count 149 thou/uL (130-400); RBC Distribution Width 15.6 % (11.5-14.5); Red Blood Cell (RBC) Count 4.27 mill/uL (4.70-6.10); White Blood Cell (WBC) Count 9.7 thou/uL (4.8-10.8)
[2021-03-07 06:40] LABS: #Basophils 0.1 thou/uL (0.0-0.2); #Eosinphils 0.4 thou/uL (0.0-0.7); #Lymphocytes 2.2 thou/uL (1.20-3.40); #Monocytes 1.3 thou/uL (0.11-0.59); #Neutrophils 5.7 thou/uL (1.40-6.50); %Basophils 0.9 % (0.0-1.0); %Eosinophils 4.2 % (0.0-10.0); %Lymphocytes 22.5 % (21.0-51.0); %Monocytes 13.7 % (0.0-10.0); %Neutrophils 58.6 % (42.0-75.0)
[2021-03-07 07:07] LABS: Anion Gap 13 mmol/L (10-20); BUN (Urea Nitrogen) 37 mg/dL (8.4-25.7); Calc. Creatinine Clearance 0 mL/min (70-130); Carbon Dioxide 24 mmol/L (23-31); Chloride 113 mmol/L (98-107); Glucose 108 mg/dL (80-115); Magnesium 2.2 mg/dL (1.6-2.6); Phosphorus 2.7 mg/dL (2.3-4.7); Potassium 3.9 mmol/L (3.5-5.1); Sodium 146 mmol/L (136-145)
[2021-03-07] MEDS ORDERED: Sodium Chloride 0.9% 1,000 ML IV SCH (07:30)
[2021-03-07 07:31] LABS: MDiff Complete? YES; Microcytosis SLIGHT = 6-15 cells (100X) (0-5/hpf); Ovalocytes SLIGHT = 2-5 cells (100X) (0-1/hpf); Platelet Morphology Comment Appears Adequate; Polychromasia SLIGHT = 2-3 cells (100X) (0-2/hpf)
[2021-03-07] MEDS ORDERED: hydrALAZINE 25 MG TAB ONE (16:43)
[2021-03-07] MEDS: hydrALAZINE 25 MG TAB PO SCH ×2 (16:48→22:32)
[2021-03-07] MEDS: cloNIDine 0.2 MG TAB PO SCH ×2 (16:48→22:32)
[2021-03-07] MEDS: Senokot S 8.6-50 MG TAB PO SCH ×2 (16:55→22:32)
[2021-03-07] MEDS: Polyethylene Glycol 3350 17 GM Packet PO SCH (16:55)
[2021-03-07] MEDS: Carvedilol 25 MG TAB PO SCH (17:29)
[2021-03-07] MEDS: metFORMIN 500 MG TAB PO SCH (17:29)
[2021-03-07] MEDS ORDERED: Atorvastatin Calcium 20 MG TAB PO SCH (21:00)
[2021-03-07] MEDS ORDERED: Famotidine/PF 20 mg/2ml Vial SLOW IVP SCH (21:00)
[2021-03-07] MEDS ORDERED: levETIRAcetam 500 MG TAB PO SCH (21:00)
[2021-03-07 22:30] VITALS: BMI 30.4
[2021-03-08 06:53] LABS: Anion Gap 12 mmol/L (10-20); BUN (Urea Nitrogen) 32 mg/dL (8.4-25.7); Calc. Creatinine Clearance 51 mL/min (70-130); Calcium 8.3 mg/dL (7.8-10.44); Carbon Dioxide 25 mmol/L (23-31); Chloride 110 mmol/L (98-107); Glucose 114 mg/dL (80-115); Phosphorus 2.5 mg/dL (2.3-4.7); Potassium 3.8 mmol/L (3.5-5.1); Sodium 143 mmol/L (136-145)
[2021-03-08] MEDS: Carvedilol 25 MG TAB PO SCH (08:51)
[2021-03-08] MEDS: metFORMIN 500 MG TAB PO SCH (08:51)
[2021-03-08] MEDS: hydrALAZINE 25 MG TAB PO SCH (08:51)
[2021-03-08] MEDS: cloNIDine 0.2 MG TAB PO SCH (08:52)
[2021-03-08] MEDS: Polyethylene Glycol 3350 17 GM Packet PO SCH (08:55)
[2021-03-08] MEDS: Senokot S 8.6-50 MG TAB PO SCH (08:56)
[2021-03-08] MEDS ORDERED: levETIRAcetam 500 MG TAB PO SCH (09:00)
[2021-03-08] MEDS ORDERED: Ferrous Sulfate 325 MG TAB PO SCH (09:00)
[2021-03-08] MEDS ORDERED: Citalopram 10 MG TAB PO SCH (09:00)
[2021-03-08] MEDS ORDERED: Amlodipine 10 MG TAB PO SCH (09:00)
[2021-03-08 11:18] VITALS: BP 105/59; TEMP 98.2
== END 2021-03-08 13:45 | disposition home or self-care (01) | DRG 83 ==
LOC: ERS 19:55 → ERHOLD 22:31 → SJJU 03-07 17:45
PROVIDERS: ADMIT Surgery; ATTEND Surgery
DX: S06.4X9A Epidural hemorrhage with loss of consciousness of unspecified duration, initial encounter (principal); N17.9 Acute kidney failure, unspecified; I24.8 Other forms of acute ischemic heart disease; I69.351 Hemiplegia and hemiparesis following cerebral infarction affecting right dominant side; S06.5X9A Traumatic subdural hemorrhage with loss of consciousness of unspecified duration, initial encounter; R29.6 Repeated falls; Z20.822 Contact with and (suspected) exposure to COVID-19; F20.9 Schizophrenia, unspecified; F03.90 Unspecified dementia, unspecified severity, without behavioral disturbance, psychotic disturbance, mood disturbance, and anxiety; W19.XXXA Unspecified fall, initial encounter; G40.909 Epilepsy, unspecified, not intractable, without status epilepticus; N18.30 Chronic kidney disease, stage 3 unspecified; R40.2362 Coma scale, best motor response, obeys commands, at arrival to emergency department; R40.2142 Coma scale, eyes open, spontaneous, at arrival to emergency department; R40.2242 Coma scale, best verbal response, confused conversation, at arrival to emergency department; I12.9 Hypertensive chronic kidney disease with stage 1 through stage 4 chronic kidney disease, or unspecified chronic kidney disease; E11.22 Type 2 diabetes mellitus with diabetic chronic kidney disease; Z79.899 Other long term (current) drug therapy; Z79.82 Long term (current) use of aspirin
CPT/HCPCS: 36415; 36416; 70450; 80048; 82553; 83735; 84100; 84484; 85025; 93306; 93880; G0390; J7050; S0028

== ENCOUNTER 2021-04-19 02:01 | Inpatient (IN) | payer MEDICARE, MEDICAID ==
[2021-04-19] MEDS: Sodium Chloride 0.9% 1,000 ML IV SCH ×2 (03:00→12:41)
[2021-04-19] MEDS ORDERED: Acetaminophen 325 MG TAB PO PRN ×2 (04:00→04:11)
[2021-04-19 05:02] VITALS: BMI 31.6
[2021-04-19 05:46] LABS: #Basophils 0.1 thou/uL (0.0-0.2); #Eosinphils 0.2 thou/uL (0.0-0.7); #Lymphocytes 1.6 thou/uL (1.20-3.40); #Monocytes 0.8 thou/uL (0.11-0.59); #Neutrophils 5.9 thou/uL (1.40-6.50); %Basophils 0.6 % (0.0-1.0); %Eosinophils 2.8 % (0.0-10.0); %Lymphocytes 18.5 % (21.0-51.0); %Monocytes 9.6 % (0.0-10.0); %Neutrophils 68.5 % (42.0-75.0); Hemoglobin 10.6 g/dL (14.0-18.0); Mean Corpuscular HGB CONC 32.8 g/dL (32.0-36.0); Mean Corpuscular Hemoglobin 23.3 pg (27.0-31.0); Mean Corpuscular Volume 70.9 fL (78.0-98.0); Mean Platelet Volume 7.9 fL (7.4-10.4); Platelet Count 150 thou/uL (130-400); RBC Distribution Width 16.1 % (11.5-14.5); Red Blood Cell (RBC) Count 4.57 mill/uL (4.70-6.10); White Blood Cell (WBC) Count 8.6 thou/uL (4.8-10.8)
[2021-04-19 06:10] LABS: ALT (SGPT) 15 U/L (8-55); AST (SGOT) 16 U/L (5-34); Albumin 3.7 g/dL (3.4-4.8); Alkaline Phosphatase 64 U/L (40-110); Anion Gap 14 mmol/L (10-20); BUN (Urea Nitrogen) 30 mg/dL (8.4-25.7); Bilirubin, Total 0.3 mg/dL (0.2-1.2); Calc. Creatinine Clearance 59 mL/min (70-130); Carbon Dioxide 26 mmol/L (23-31); Chloride 108 mmol/L (98-107); Globulin 3.4 g/dL (2.4-3.5); Glucose 119 mg/dL (80-115); Potassium 4.1 mmol/L (3.5-5.1); Protein, Total 7.1 g/dL (5.8-8.1); Sodium 144 mmol/L (136-145)
[2021-04-19] MEDS ORDERED: levETIRAcetam 500 MG TAB PO SCH ×2 (09:00→09:45)
[2021-04-19] MEDS ORDERED: Aspirin 300 MG Suppository PR SCH (09:00)
[2021-04-19] MEDS ORDERED: Magnevist 469MG/ML 20 ML VIAL ONE (09:40)
[2021-04-19] MEDS: Citalopram 10 MG TAB PO SCH (10:12)
[2021-04-19] MEDS: Enoxaparin Sodium 40 MG/0.4 ML SYRINGE SC SCH (10:13)
[2021-04-19] MEDS: Carvedilol 25 MG TAB PO SCH ×2 (10:13→17:03)
[2021-04-19] MEDS: hydrALAZINE 25 MG TAB PO SCH ×3 (10:13→20:34)
[2021-04-19] MEDS: Spironolactone 25 MG TAB PO SCH (10:13)
[2021-04-19] MEDS: cloNIDine 0.2 MG TAB PO SCH ×3 (10:13→20:33)
[2021-04-19] MEDS: Ferrous Sulfate 325 MG TAB PO SCH (10:14)
[2021-04-19] MEDS: Atorvastatin Calcium 20 MG TAB PO SCH (20:32)
[2021-04-19] MEDS: levETIRAcetam 500 MG TAB PO SCH (20:32)
[2021-04-20] MEDS ORDERED: levETIRAcetam 100 mg/ml Oral Solution PO SCH (09:00)
[2021-04-20] MEDS: Ferrous Sulfate 325 MG TAB PO SCH (09:12)
[2021-04-20] MEDS: Enoxaparin Sodium 40 MG/0.4 ML SYRINGE SC SCH (09:12)
[2021-04-20] MEDS: hydrALAZINE 25 MG TAB PO SCH ×3 (09:12→21:00)
[2021-04-20] MEDS: Spironolactone 25 MG TAB PO SCH (09:12)
[2021-04-20] MEDS: cloNIDine 0.2 MG TAB PO SCH ×3 (09:13→21:01)
[2021-04-20] MEDS: Carvedilol 25 MG TAB PO SCH ×2 (09:13→16:39)
[2021-04-20] MEDS: Citalopram 10 MG TAB PO SCH (09:13)
[2021-04-20] MEDS ORDERED: cloNIDine 0.2mg/24 Hour PATCH TD SCH (10:00)
[2021-04-20] MEDS: levETIRAcetam 500 MG TAB PO SCH ×2 (10:19→12:02)
[2021-04-20 11:08] LABS: Anion Gap 12 mmol/L (10-20); BUN (Urea Nitrogen) 20 mg/dL (8.4-25.7); Calc. Creatinine Clearance 69 mL/min (70-130); Calcium 8.9 mg/dL (7.8-10.44); Carbon Dioxide 27 mmol/L (23-31); Chloride 105 mmol/L (98-107); Glucose 116 mg/dL (80-115); Potassium 3.9 mmol/L (3.5-5.1); Sodium 140 mmol/L (136-145)
[2021-04-20] MEDS ORDERED: levETIRAcetam 500 mg/5 ml Oral Solution PO SCH (12:00)
[2021-04-20] MEDS: Atorvastatin Calcium 20 MG TAB PO SCH (21:00)
[2021-04-20] MEDS: levETIRAcetam 500 mg/5 ml Oral Solution PO SCH (21:01)
[2021-04-21] MEDS: levETIRAcetam 500 mg/5 ml Oral Solution PO SCH ×2 (09:03→21:54)
[2021-04-21] MEDS: Enoxaparin Sodium 40 MG/0.4 ML SYRINGE SC SCH (09:03)
[2021-04-21] MEDS: hydrALAZINE 25 MG TAB PO SCH ×3 (09:04→21:52)
[2021-04-21] MEDS: Ferrous Sulfate 325 MG TAB PO SCH (09:04)
[2021-04-21] MEDS: Spironolactone 25 MG TAB PO SCH (09:05)
[2021-04-21] MEDS: cloNIDine 0.1 MG TAB PO SCH ×2 (09:05→14:33)
[2021-04-21] MEDS: Carvedilol 25 MG TAB PO SCH ×2 (09:05→17:02)
[2021-04-21] MEDS: Citalopram 10 MG TAB PO SCH (09:05)
[2021-04-21] MEDS: Atorvastatin Calcium 20 MG TAB PO SCH (21:53)
[2021-04-22] MEDS: cloNIDine 0.1 MG TAB PO SCH (00:51)
[2021-04-22] MEDS: hydrALAZINE 25 MG TAB PO SCH ×2 (08:48→16:11)
[2021-04-22] MEDS: Ferrous Sulfate 325 MG TAB PO SCH (08:48)
[2021-04-22] MEDS: Carvedilol 25 MG TAB PO SCH ×2 (08:48→16:12)
[2021-04-22] MEDS: Citalopram 10 MG TAB PO SCH (08:49)
[2021-04-22] MEDS: Spironolactone 25 MG TAB PO SCH (08:49)
[2021-04-22] MEDS: Enoxaparin Sodium 40 MG/0.4 ML SYRINGE SC SCH (08:49)
[2021-04-22] MEDS: levETIRAcetam 500 mg/5 ml Oral Solution PO SCH (08:50)
[2021-04-22] MEDS ORDERED: FLU VACC QS2021-22(65YR UP)/PF 240 MCG/0.7 ML SYRINGE IM ONE (09:00)
[2021-04-22 15:58] VITALS: TEMP 98.9
[2021-04-22 16:50] VITALS: BP 139/89
[2021-04-27] MEDS ORDERED: cloNIDine 0.2mg/24 Hour PATCH TD SCH ×2 (09:00)
== END 2021-04-22 18:30 | DRG 101 ==
LOC: NEURO 03:44
PROVIDERS: ADMIT Family Medicine; ATTEND Family Medicine
DX: G40.909 Epilepsy, unspecified, not intractable, without status epilepticus (principal); Z23 Encounter for immunization; I69.351 Hemiplegia and hemiparesis following cerebral infarction affecting right dominant side; N17.9 Acute kidney failure, unspecified; F20.9 Schizophrenia, unspecified; E11.22 Type 2 diabetes mellitus with diabetic chronic kidney disease; I12.9 Hypertensive chronic kidney disease with stage 1 through stage 4 chronic kidney disease, or unspecified chronic kidney disease; N18.30 Chronic kidney disease, stage 3 unspecified; D50.9 Iron deficiency anemia, unspecified; G47.00 Insomnia, unspecified; E78.5 Hyperlipidemia, unspecified; I69.320 Aphasia following cerebral infarction; Z79.899 Other long term (current) drug therapy
CPT/HCPCS: 36415; 36416; 70553; 80048; 80177; 90471; 90662; 90732; 95816; 95819; 95957; A9579; G0008; G0009; J1650; J7050

== ENCOUNTER 2022-09-19 10:42 | Inpatient (IN) | payer MEDICARE, MEDICAID ==
[2022-09-19 15:08] VITALS: BMI 30.4
[2022-09-19] MEDS ORDERED: Heparin 10,000 UNITS/ 10 ML VIAL SLOW IVP SCH (16:00)
[2022-09-19] MEDS ORDERED: Heparin 25,000 units/D5W 500 ML IVPB SCH (16:00)
[2022-09-19] MEDS ORDERED: levETIRAcetam 500 MG/5 ML VIAL SLOW IVP SCH ×2 (16:30)
[2022-09-19] MEDS ORDERED: Dextrose 5%-Lactated Ringers 1,000 ML IV SCH (16:45)
[2022-09-19] MEDS ORDERED: Nitroglycerin 2% Ointment 1 INCH/1 GM Packet TOP PRN (16:48)
[2022-09-19] MEDS ORDERED: cefTRIAXone\\ROCEPHIN 1 GM in Sodium Chloride 0.9% 100 ML IVPB SCH (17:00)
[2022-09-19] MEDS ORDERED: cloNIDine 0.2mg/24 Hour PATCH TD SCH (17:00)
[2022-09-19 17:13] LABS: Hemoglobin A1c 6.7 % (4.0-6.0)
[2022-09-19] MEDS: Carvedilol 25 MG TAB PO SCH (17:18)
[2022-09-19 17:19] LABS: Cardiac Risk 2.4 (Less than 4.5); Cholesterol 129 mg/dl (< 200 Desired); HDL Cholesterol 53 mg/dL (>60 Neg Risk); LDL Cholesterol, Calculated 71 mg/dL; Magnesium 1.8 mg/dL (1.6-2.6); Triglycerides 23 mg/dL (Less than 150)
[2022-09-19 17:25] LABS: INR-International Normal Ratio 1.3; PTT 32.1 sec (22.9-36.1); Prothrombin Time 16.2 sec (12.0-14.7)
[2022-09-19 17:35] LABS: Troponin I 3.229 ng/mL (< 0.028)
[2022-09-19] MEDS ORDERED: VANCOMYCIN 2 GRAM/500 ML BAG 2 GM in Premix Bag 1 BAG IVPB SCH (18:00)
[2022-09-19] MEDS ORDERED: Clopidogrel Bisulfate 75 MG TAB PO SCH (18:15)
[2022-09-19 19:41] LABS: Critical Call Chem Troponin I RESULT DECREASING
[2022-09-19] MEDS ORDERED: QUEtiapine 100 MG TAB PO SCH (21:00)
[2022-09-19] MEDS: Melatonin 3 MG TAB PO SCH (21:29)
[2022-09-19] MEDS: levETIRAcetam 500 MG TAB PO SCH (21:29)
[2022-09-19] MEDS: Pantoprazole 40 MG VIAL IVP SCH (21:30)
[2022-09-19] MEDS: Atorvastatin Calcium 40 MG TAB PO SCH (21:30)
[2022-09-19] MEDS: cefTRIAXone\\ROCEPHIN 1 GM in Sodium Chloride 0.9% 100 ML IVPB SCH (21:30)
[2022-09-19] MEDS ORDERED: Nitroglycerin 2% Ointment 1 INCH/1 GM Packet TOP SCH (22:00)
[2022-09-19] MEDS: metroNIDAZOLE 500 MG in Premix Bag 1 BAG IVPB SCH (22:22)
[2022-09-19 22:53] LABS: Heparin Anti 10a (LMWH) 0.34 IU/mL; INR-International Normal Ratio 1.3; PTT 32.2 sec (22.9-36.1); Prothrombin Time 16.9 sec (12.0-14.7)
[2022-09-20 05:30] LABS: #Eosinphils 0.5 thou/uL (0.0-0.7); #Monocytes 1.2 thou/uL (0.11-0.59); #Neutrophils 5.2 thou/uL (1.40-6.50); %Basophils 0.5 % (0.0-1.0); %Eosinophils 6.1 % (0.0-10.0); %Lymphocytes 21.4 % (21.0-51.0); %Monocytes 13.1 % (0.0-10.0); %Neutrophils 58.8 % (42.0-75.0); Hemoglobin 11.5 g/dL (14.0-18.0); Mean Corpuscular HGB CONC 32.9 g/dL (32.0-36.0); Mean Corpuscular Hemoglobin 22.4 pg (27.0-31.0); Mean Corpuscular Volume 68.1 fl (78.0-98.0); Platelet Count 181 10x3/uL (130-400); RBC Distribution Width 15.7 % (11.5-14.5); Red Blood Cell (RBC) Count 5.14 mill/uL (4.70-6.10); White Blood Cell (WBC) Count 8.8 10x3/uL (4.8-10.8)
[2022-09-20] MEDS: metroNIDAZOLE 500 MG in Premix Bag 1 BAG IVPB SCH ×3 (05:45→23:12)
[2022-09-20 05:57] LABS: ALT (SGPT) 26 U/L (8-55); AST (SGOT) 39 U/L (5-34); Albumin 3.9 g/dL (3.4-4.8); Alkaline Phosphatase 72 U/L (40-110); Anion Gap 16 mmol/L (10-20); BUN (Urea Nitrogen) 20 mg/dL (8.4-25.7); Bilirubin, Total 0.5 mg/dL (0.2-1.2); Calc. Creatinine Clearance 64 mL/min (70-130); Calcium 8.8 mg/dL (7.8-10.44); Carbon Dioxide 28 mmol/L (23-31); Chloride 101 mmol/L (98-107); Estimated GFR 50; Globulin 3.9 g/dL (2.4-3.5); Glucose 118 mg/dL (80-115); Potassium 3.2 mmol/L (3.5-5.1); Protein, Total 7.8 g/dL (5.8-8.1); Sodium 142 mmol/L (136-145)
[2022-09-20] MEDS ORDERED: Potassium Chloride 20 MEQ TAB PO ONE (07:16)
[2022-09-20] MEDS ORDERED: Potassium Chloride 20 MEQ TAB PO SCH ×2 (07:30→09:00)
[2022-09-20] MEDS: Ferrous Sulfate 325 MG TAB PO SCH (08:18)
[2022-09-20] MEDS: Clopidogrel Bisulfate 75 MG TAB PO SCH (08:18)
[2022-09-20] MEDS: Spironolactone 25 MG TAB PO SCH (08:18)
[2022-09-20] MEDS: levETIRAcetam 500 MG TAB PO SCH ×2 (08:18→20:09)
[2022-09-20] MEDS: Aspirin 81 mg Enteric Coated Tablet PO SCH (08:18)
[2022-09-20] MEDS: Heparin 5,000 UNITS/ML VIAL SC SCH ×3 (08:18→20:09)
[2022-09-20] MEDS ORDERED: cloNIDine 0.2mg/24 Hour PATCH TD SCH (09:00)
[2022-09-20] MEDS ORDERED: Aspirin 81 mg Enteric Coated Tablet PO SCH (09:00)
[2022-09-20] MEDS ORDERED: Aspirin 300 MG Suppository PR SCH (09:00)
[2022-09-20] MEDS ORDERED: Citalopram 10 MG TAB PO SCH (09:00)
[2022-09-20] MEDS: Carvedilol 25 MG TAB PO SCH (09:25)
[2022-09-20] MEDS: Amlodipine 5 MG TAB PO SCH (10:29)
[2022-09-20] MEDS ORDERED: Glucagon 1 MG/ML KIT IM PRN (10:37)
[2022-09-20] MEDS ORDERED: HumaLOG 300 UNITS/3 ML VIAL SC PRN (10:37)
[2022-09-20] MEDS ORDERED: Dextrose 5% in Water 1,000 ML IV PRN (10:37)
[2022-09-20] MEDS ORDERED: Dextrose 50% Abboject 50 ML SYRINGE SLOW IVP PRN (10:37)
[2022-09-20] MEDS ORDERED: VANCOMYCIN 1.25 GM/250 ML BAG 1.25 GM in Premix Bag 1 BAG IVPB SCH (18:00)
[2022-09-20] MEDS: Carvedilol 6.25 MG TAB PO SCH (18:27)
[2022-09-20] MEDS: Melatonin 3 MG TAB PO SCH (20:09)
[2022-09-20] MEDS: Pantoprazole 40 MG VIAL IVP SCH (20:09)
[2022-09-20] MEDS: cefTRIAXone\\ROCEPHIN 1 GM in Sodium Chloride 0.9% 100 ML IVPB SCH (20:09)
[2022-09-20] MEDS: Atorvastatin Calcium 40 MG TAB PO SCH (20:09)
[2022-09-20 23:15] LABS: Urine Total Volume 2000 mL (250-2400)
[2022-09-20 23:48] LABS: Protein - 24 Hr 1180 mg/24 hr (Less than 300); Protein, Urine 59 mg/dL (1-14)
[2022-09-21 05:46] LABS: #Eosinphils 0.3 thou/uL (0.0-0.7); #Monocytes 0.9 thou/uL (0.11-0.59); #Neutrophils 5.6 thou/uL (1.40-6.50); %Basophils 0.5 % (0.0-1.0); %Lymphocytes 17.2 % (21.0-51.0); %Monocytes 10.7 % (0.0-10.0); %Neutrophils 68.4 % (42.0-75.0); Hemoglobin 11.3 g/dL (14.0-18.0); Mean Corpuscular HGB CONC 33.1 g/dL (32.0-36.0); Mean Corpuscular Hemoglobin 22.2 pg (27.0-31.0); Mean Corpuscular Volume 66.9 fl (78.0-98.0); Platelet Count 175 10x3/uL (130-400); RBC Distribution Width 15.3 % (11.5-14.5); White Blood Cell (WBC) Count 8.3 10x3/uL (4.8-10.8)
[2022-09-21] MEDS: metroNIDAZOLE 500 MG in Premix Bag 1 BAG IVPB SCH (05:59)
[2022-09-21 06:21] LABS: ALT (SGPT) 20 U/L (8-55); AST (SGOT) 37 U/L (5-34); Albumin 3.4 g/dL (3.4-4.8); Alkaline Phosphatase 63 U/L (40-110); Anion Gap 15 mmol/L (10-20); BUN (Urea Nitrogen) 23 mg/dL (8.4-25.7); Bilirubin, Total 0.4 mg/dL (0.2-1.2); Calc. Creatinine Clearance 54 mL/min (70-130); Calcium 8.6 mg/dL (7.8-10.44); Carbon Dioxide 26 mmol/L (23-31); Chloride 100 mmol/L (98-107); Estimated GFR 42; Globulin 3.7 g/dL (2.4-3.5); Glucose 137 mg/dL (80-115); Potassium 3.4 mmol/L (3.5-5.1); Protein, Total 7.1 g/dL (5.8-8.1); Sodium 138 mmol/L (136-145)
[2022-09-21] MEDS ORDERED: Potassium Chloride 20 MEQ TAB PO SCH (07:00)
[2022-09-21] MEDS ORDERED: Lorazepam 2 MG/ML VIAL SLOW IVP PRN (07:40)
[2022-09-21] MEDS: Clopidogrel Bisulfate 75 MG TAB PO SCH (08:30)
[2022-09-21] MEDS: Aspirin 81 mg Enteric Coated Tablet PO SCH (08:30)
[2022-09-21] MEDS: Carvedilol 6.25 MG TAB PO SCH ×2 (08:31→16:36)
[2022-09-21] MEDS: levETIRAcetam 500 MG TAB PO SCH ×2 (08:31→21:03)
[2022-09-21] MEDS: Ferrous Sulfate 325 MG TAB PO SCH (08:31)
[2022-09-21] MEDS: Spironolactone 25 MG TAB PO SCH (08:31)
[2022-09-21] MEDS: Amlodipine 5 MG TAB PO SCH (08:31)
[2022-09-21] MEDS: Heparin 5,000 UNITS/ML VIAL SC SCH ×3 (08:35→21:04)
[2022-09-21] MEDS ORDERED: Lactated Ringer's 1,000 ML IV SCH (09:45)
[2022-09-21] MEDS ORDERED: Amoxicillin/Potassium Clav 875 MG TAB PO SCH ×2 (10:00→21:00)
[2022-09-21] MEDS: Amoxicillin/Potassium Clav 875 MG TAB PO SCH (21:03)
[2022-09-21] MEDS: Melatonin 3 MG TAB PO SCH (21:04)
[2022-09-21] MEDS: Atorvastatin Calcium 20 MG TAB PO SCH (21:04)
[2022-09-22 05:29] LABS: #Eosinphils 0.4 thou/uL (0.0-0.7); #Monocytes 1.3 thou/uL (0.11-0.59); #Neutrophils 5.4 thou/uL (1.40-6.50); %Basophils 0.3 % (0.0-1.0); %Eosinophils 4.3 % (0.0-10.0); %Lymphocytes 25.5 % (21.0-51.0); %Monocytes 13.2 % (0.0-10.0); %Neutrophils 56.4 % (42.0-75.0); Hemoglobin 11.2 g/dL (14.0-18.0); Mean Corpuscular HGB CONC 33.5 g/dL (32.0-36.0); Mean Corpuscular Volume 65.7 fl (78.0-98.0); Platelet Count 173 10x3/uL (130-400); Red Blood Cell (RBC) Count 5.08 mill/uL (4.70-6.10); White Blood Cell (WBC) Count 9.6 10x3/uL (4.8-10.8)
[2022-09-22 05:45] LABS: RBC Distribution Width 15.2 % (11.5-14.5)
[2022-09-22 05:58] LABS: ALT (SGPT) 22 U/L (8-55); AST (SGOT) 30 U/L (5-34); Albumin 3.4 g/dL (3.4-4.8); Alkaline Phosphatase 61 U/L (40-110); Anion Gap 15 mmol/L (10-20); BUN (Urea Nitrogen) 31 mg/dL (8.4-25.7); Bilirubin, Total 0.3 mg/dL (0.2-1.2); Calc. Creatinine Clearance 47 mL/min (70-130); Calcium 8.5 mg/dL (7.8-10.44); Carbon Dioxide 27 mmol/L (23-31); Chloride 101 mmol/L (98-107); Estimated GFR 35; Globulin 3.4 g/dL (2.4-3.5); Glucose 119 mg/dL (80-115); Potassium 3.6 mmol/L (3.5-5.1); Protein, Total 6.8 g/dL (5.8-8.1); Sodium 139 mmol/L (136-145)
[2022-09-22] MEDS: Clopidogrel Bisulfate 75 MG TAB PO SCH (08:56)
[2022-09-22] MEDS: Amoxicillin/Potassium Clav 875 MG TAB PO SCH ×2 (08:56→20:25)
[2022-09-22] MEDS: levETIRAcetam 500 MG TAB PO SCH ×2 (08:56→20:24)
[2022-09-22] MEDS: Spironolactone 25 MG TAB PO SCH (08:57)
[2022-09-22] MEDS: Amlodipine 5 MG TAB PO SCH (08:57)
[2022-09-22] MEDS: Ferrous Sulfate 325 MG TAB PO SCH (08:57)
[2022-09-22] MEDS: Aspirin 81 mg Enteric Coated Tablet PO SCH (08:57)
[2022-09-22] MEDS: Carvedilol 6.25 MG TAB PO SCH ×2 (08:57→17:39)
[2022-09-22] MEDS: Heparin 5,000 UNITS/ML VIAL SC SCH ×3 (09:00→20:24)
[2022-09-22] MEDS: HumaLOG 300 UNITS/3 ML VIAL SC PRN (12:24)
[2022-09-22] MEDS: Melatonin 3 MG TAB PO SCH (20:24)
[2022-09-22 20:46] LABS: Bacteria/HPF None Seen HPF (None Seen); Bilirubin Negative (Negative); Blood, Urine Trace (Negative); Clarity Clear (Clear); Glucose, Urine (Dipstick) Normal (Negative); Ketone, Urine Negative (Negative); Leukocyte 75 Leu/uL (Negative); Nitrite Negative (Negative); Protein, Urine (Dipstick) 30 mg/dL (Neg-Trace); RBC/HPF 0-3 HPF (0-3); Renal Epithelial 0-3 HPF (None Seen); Specific Gravity, Urine 1.022 (1.002-1.036); Squamous Epithelial 0-3 HPF (0-3); Urobilinogen Normal mg/dL (Less than 2); Yeast-Budding 1+ HPF (None Seen); pH, Urine 5.5 (5.0-9.0)
[2022-09-22] MEDS ORDERED: Sodium Chloride 0.9% 1,000 ML IV SCH (22:00)
[2022-09-22] MEDS: Atorvastatin Calcium 20 MG TAB PO SCH (22:44)
[2022-09-23] MEDS: Carvedilol 6.25 MG TAB PO SCH (09:34)
[2022-09-23] MEDS: Amlodipine 5 MG TAB PO SCH (09:35)
[2022-09-23] MEDS: levETIRAcetam 500 MG TAB PO SCH (09:35)
[2022-09-23] MEDS: Ferrous Sulfate 325 MG TAB PO SCH (09:35)
[2022-09-23] MEDS: Amoxicillin/Potassium Clav 875 MG TAB PO SCH (09:35)
[2022-09-23] MEDS: Aspirin 81 mg Enteric Coated Tablet PO SCH (09:35)
[2022-09-23] MEDS: Clopidogrel Bisulfate 75 MG TAB PO SCH (09:37)
[2022-09-23] MEDS: Spironolactone 25 MG TAB PO SCH (09:38)
[2022-09-23] MEDS: Heparin 5,000 UNITS/ML VIAL SC SCH ×2 (09:38→16:18)
[2022-09-23 09:50] LABS: #Eosinphils 0.6 thou/uL (0.0-0.7); #Monocytes 1.2 thou/uL (0.11-0.59); #Neutrophils 5.5 thou/uL (1.40-6.50); %Basophils 0.4 % (0.0-1.0); %Lymphocytes 20.3 % (21.0-51.0); %Monocytes 13.3 % (0.0-10.0); %Neutrophils 59.6 % (42.0-75.0); Hemoglobin 11.8 g/dL (14.0-18.0); Mean Corpuscular HGB CONC 33.5 g/dL (32.0-36.0); Mean Corpuscular Hemoglobin 22.6 pg (27.0-31.0); Mean Corpuscular Volume 67.3 fl (78.0-98.0); Platelet Count 133 10x3/uL (130-400); RBC Distribution Width 15.6 % (11.5-14.5); Red Blood Cell (RBC) Count 5.23 mill/uL (4.70-6.10); White Blood Cell (WBC) Count 9.3 10x3/uL (4.8-10.8)
[2022-09-23 10:05] LABS: ALT (SGPT) 81 U/L (8-55); AST (SGOT) 95 U/L (5-34); Albumin 3.6 g/dL (3.4-4.8); Alkaline Phosphatase 67 U/L (40-110); Anion Gap 16 mmol/L (10-20); BUN (Urea Nitrogen) 24 mg/dL (8.4-25.7); Bilirubin, Total 0.3 mg/dL (0.2-1.2); Calc. Creatinine Clearance 64 mL/min (70-130); Calcium 8.6 mg/dL (7.8-10.44); Carbon Dioxide 24 mmol/L (23-31); Chloride 100 mmol/L (98-107); Estimated GFR 51; Globulin 3.2 g/dL (2.4-3.5); Glucose 95 mg/dL (80-115); Potassium 3.6 mmol/L (3.5-5.1); Protein, Total 6.8 g/dL (5.8-8.1); Sodium 136 mmol/L (136-145)
[2022-09-23 11:19] LABS: Burr Cells SLIGHT = 2-5 cells HPF (0-1); CellaVision Operator ID LAB.GE; Microcytosis MODERATE=15-30 cells HPF (0-5); Ovalocytes SLIGHT = 2-5 cells HPF (0-1); Platelet Adequacy Comment Platelets Normal; Polychromasia SLIGHT = 2-3 cells HPF (0-2); Target Cells SLIGHT = 2-5 cells HPF (0-1)
[2022-09-23] MEDS: HumaLOG 300 UNITS/3 ML VIAL SC PRN (12:21)
[2022-09-23 16:20] VITALS: TEMP 98.4
[2022-09-23 16:47] VITALS: BP 161/96
== END 2022-09-23 17:26 | DRG 871 ==
LOC: 2SE 12:09
PROVIDERS: ADMIT Family Medicine; ATTEND Family Medicine
DX: A41.9 Sepsis, unspecified organism (principal); I21.A1 Myocardial infarction type 2; J18.9 Pneumonia, unspecified organism; I50.20 Unspecified systolic (congestive) heart failure; I13.0 Hypertensive heart and chronic kidney disease with heart failure and stage 1 through stage 4 chronic kidney disease, or unspecified chronic kidney disease; N17.9 Acute kidney failure, unspecified; N18.4 Chronic kidney disease, stage 4 (severe); G40.909 Epilepsy, unspecified, not intractable, without status epilepticus; D50.9 Iron deficiency anemia, unspecified; I45.81 Long QT syndrome; E78.5 Hyperlipidemia, unspecified; F03.90 Unspecified dementia, unspecified severity, without behavioral disturbance, psychotic disturbance, mood disturbance, and anxiety; E11.22 Type 2 diabetes mellitus with diabetic chronic kidney disease; Z20.822 Contact with and (suspected) exposure to COVID-19; Z79.899 Other long term (current) drug therapy; Z79.82 Long term (current) use of aspirin; E87.6 Hypokalemia; Z79.02 Long term (current) use of antithrombotics/antiplatelets; Z82.49 Family history of ischemic heart disease and other diseases of the circulatory system; N28.1 Cyst of kidney, acquired
CPT/HCPCS: 36415; 36416; 70551; 76770; 80053; 80061; 80177; 81001; 82570; 83036; 83605; 83735; 83880; 83935; 84100; 84145; 84146; 84156; 84540; 85025; 85520; 85610; 85730; 87081; 93005; 93010; 93306; 95712; 95816; 95819; 95957; C9113; J0696; J1644; J1815; J1953; J3370; J3490; J7050; J7120

== ENCOUNTER 2023-08-26 05:04 | Inpatient (IN) | payer MEDICARE, MEDICAID ==
[2023-08-26 14:06] VITALS: BMI 33.1
[2023-08-31 11:04] VITALS: BP 156/81; TEMP 98.5
== END 2023-08-31 14:00 | disposition home or self-care (01) | DRG 101 ==
LOC: ERS 05:04 → ERHOLD 07:23 → 2NO 07:23 → OBSVTOIN 08-28 13:22
PROVIDERS: ADMIT Family Medicine; ATTEND Family Medicine
DX: G40.909 Epilepsy, unspecified, not intractable, without status epilepticus (principal); I50.22 Chronic systolic (congestive) heart failure; I69.351 Hemiplegia and hemiparesis following cerebral infarction affecting right dominant side; N17.9 Acute kidney failure, unspecified; I11.0 Hypertensive heart disease with heart failure; I16.0 Hypertensive urgency; G93.89 Other specified disorders of brain; E78.5 Hyperlipidemia, unspecified; N18.30 Chronic kidney disease, stage 3 unspecified; E11.22 Type 2 diabetes mellitus with diabetic chronic kidney disease; E11.65 Type 2 diabetes mellitus with hyperglycemia; R32 Unspecified urinary incontinence
CPT/HCPCS: 36415; 36416; 70450; 76770; 80048; 80053; 80177; 81001; 82550; 83036; 83605; 85025; 93005; 96376; G0378; J0360; J1650; J1815; J1953; J7120